=== PATIENT | male | born 1945 | race Caucasian/White ===

== ENCOUNTER 2020-05-24 17:55 | Inpatient (IN) | payer OTHER, SELFPAY ==
[~2020-05-24] VITALS: Ht 188 cm; Wt 99.4 kg
[2020-05-24 00:01] VITALS: BP_SYST 108
[~2020-05-24 17:55] MED LIST: ALBMDI INH; ALPR0.25 PO; COR12.5 PO; FLUT1BLS3 INH; FURO-149 PO; LEVO100T9 PO; LEVO500T89 PO; PRO20 PO; PRO40 PO; RIVA20TA PO; ROPI0.252 PO; SPIR25TA PO; SPIRIVA INH
[2020-05-24 18:00] VITALS: BP_SYST 155
--- NOTE | 2020-05-24 18:00 | NUR ---
Patient to ER bed 7 to gown for evaluation. Side rails up. Report given to BOBBI.
--- NOTE | 2020-05-24 18:05 | NUR ---
PT AAO AND BIB AMBULANCE FOR WORSENING COUGH X 2 DAYS. PT REPORTS THAT COUGH CAUSES HIM TO HAVE SUBSTERNAL CHEST DISCOMFORT 10/10. PT REPORTS CALLING FOR HELP D/T A NEAR SYCOPAL EPISODE. PT HAVE SIGNIFICANT CARDIAC HISTORY AND MEDICS GAVE PT ONE SPRAY OF NITRO AND ASA 325MG PO D/T A FIB. PT ARRIVED WITH AN 18G IV IN PLACE IN LEFT AC.
--- NOTE | 2020-05-24 18:15 | NUR ---
ER at bedside examining patient.
[2020-05-24] MEDS ORDERED: TADA20TA47 PO (18:33)
[2020-05-24] MEDS ORDERED: ASPI-1457 PO (18:33)
[2020-05-24] MEDS ORDERED: NITSL SL (18:33)
[2020-05-24] MEDS ORDERED: LIP40 PO (18:33)
[2020-05-24] MEDS ORDERED: MUPI1OIN5 TP (18:33)
[2020-05-24] MEDS ORDERED: POLY17PO4 PO (18:33)
--- NOTE | 2020-05-24 18:33 | NUR ---
Medication reconciliation completed with information provided by FROM PATIENT. Any prior medication reconciliation on file was reviewed and corrected.
[2020-05-24 18:47] LABS: BASOPHILS # (AUTO) 0.1 K/uL (0.0-0.2); BASOPHILS % (AUTO) 1.8 % (0.0-2.0); EOSINOPHILS # (AUTO) 0.1 K/uL (0.0-0.4); EOSINOPHILS % (AUTO) 0.7 % (0.0-4.0); HEMATOCRIT 29.7 % (36-54); HEMOGLOBIN 8.4 g/dL (14.0-18.0); LYMPHOCYTES % (AUTO) 13.6 % (20.5-51.5); MEAN CORPUSCULAR HEMOGLOBIN 17 pg (27-31); MEAN CORPUSCULAR HGB CONC 28 % (32-36); MEAN CORPUSCULAR VOLUME 62 fL (79.0-98.0); MONOCYTES # (AUTO) 1.2 K/uL (0.0-1.0); NEUTROPHILS % (AUTO) 67.9 % (40.0-70.0); PLATELET COUNT (AUTO) 187 K/uL (130-430); RED BLOOD CELL COUNT(AUTO) 4.81 MIL/uL (4.2-6.2); RED CELL DISTRIBUTION WIDTH 23.6 % (9.0-15.0); WHITE BLOOD COUNT (AUTO) 7.3 K/uL (4.8-10.8)
--- NOTE | 2020-05-24 19:04 | NUR ---
Notified by Lab that patient is Covid Antigen positive. Notified MD and RN.
--- NOTE | 2020-05-24 19:05 | NUR ---
ASSUMED CARE OF PT, PT TO BE ADMITTED AND HAS NO S/S OF DISTRESS.
[2020-05-24 19:18] LABS: ANION GAP 7 (5-15); CALCIUM 8.8 mg/dL (8.4-11.0); CHLORIDE 104 mmol/L (98-107); CREATININE 1.29 mg/dL (0.55-1.30); GLUCOSE 98 mg/dL (70-99); POTASSIUM 4.5 mmol/L (3.5-5.1); SODIUM SERUM 135 mmol/L (136-145); UREA NITROGEN, BLOOD 15 mg/dL (8-21)
[2020-05-24 19:29] LABS: ALANINE AMINOTRANSFERASE 16 U/L (12-78); ALBUMIN 3.2 g/dL (3.4-4.8); ASPARTATE AMINOTRANSFERASE 25 U/L (10-37); LIPASE 277 U/L (73-393); TOTAL BILIRUBIN 0.6 mg/dL (0.0-1.0)
--- NOTE | 2020-05-24 19:50 | NUR ---
DR. CUELLAR SPOKE WITH PATIENT REGARDING POLST, PT AGREED AND SIGNED DNR FORM WITH PHYSICIAN AND NURSE WITNESSED.
[2020-05-24] MEDS ORDERED: DEXAMETHASONE SOD PHOSPHATE 4 MG/ML VIAL IVP ONE (20:00)
--- NOTE | 2020-05-24 20:42 | NUR ---
Patient will be admitted to care of [facility]. Admitted to TELE unit. Will go to room 124B. Belongings list completed. Complete and up to date summary report printed. SBAR report to be given at bedside with opportunity for questions.
--- NOTE | 2020-05-24 20:43 | NUR ---
Transfer to TELE via ACLS protocol. Licensed nurse present. IV present no signs or symptoms of infiltration.
--- NOTE | 2020-05-24 20:54 | NUR ---
ADMISSION NOTE Received patient from ER via gurney. Patient admitted with diagnosis of SYNCOPE. Patient is awake, alert, oriented X 4. Patient oriented to hospital room, call light, toileting, pain management and safety-teach back done. Patient informed that ASUNCION will be nurse and that their room number is 124B. Personal belongings checked and Belongings List documented. Call light within reach.
[2020-05-24 21:49] VITALS: BP_SYST 137
--- NOTE | 2020-05-24 22:53 | NUR ---
CONSULTATION PAGED/CALLED Reason for Consultation: COVID / PNA Person Who was Notified: ELIAN Consulting Physician: DOCTOR JOSE CARY IS LEDGER CLERK Dental Technologist Specialty: ID Ordering Physician: Rocky FRANKLIN
[2020-05-25] VITALS (7 sets, daily range): BP systolic 108–129
[2020-05-25] MEDS ORDERED: ALBUTEROL MDI INHALATION 8 GM INH INH PRN
[2020-05-25] MEDS ORDERED: NITROGLYCERIN 0.4 MG TAB.SUBL SL PRN
[2020-05-25] MEDS ORDERED: ONDANSETRON HCL 4 MG/2 ML VIAL IVP PRN (00:15)
[2020-05-25] MEDS ORDERED: NALOXONE HCL 0.4 MG/ML AMP (NARCAN) IVP PRN ×2 (00:15)
[2020-05-25] MEDS ORDERED: HYDROcodone/ACETAMIN 5-325 MG TAB (NORCO/ VICODIN) PO PRN (00:15)
[2020-05-25] MEDS ORDERED: ACETAMINOPHEN 325 MG TABLET PO PRN (00:15)
[2020-05-25] MEDS ORDERED: HYDROcodone/ACETAMIN 10-325 MG TAB PO PRN (00:15)
--- NOTE | 2020-05-25 00:55 | NUR ---
CONSULTATION PAGED/CALLED Reason for Consultation: MOUNIKA Person Who was Notified: MICHAEL HEARINGS REPORTER 22 Consulting Physician: CHEST PAIN Soil Tester Specialty: CARDIO Ordering Physician: Rocky FRANKLIN
[2020-05-25] MEDS: ALBUTEROL SULFATE 0.083% 2.5 MG/3 ML VIAL.NEB INH SCH ×4 (01:00→19:00)
[2020-05-25] MEDS ORDERED: AZITHROMYCIN 500 MG/VIAL (ZITHROMAX) IV ONE (01:33)
[2020-05-25] MEDS ORDERED: cefTRIAXone 1 GM IVPB PREMIX 50 ML IV ONE (01:33)
[2020-05-25] MEDS: cefTRIAXone 1 GM IVPB PREMIX 50 ML IV SCH (02:00)
[2020-05-25] MEDS: AZITHROMYCIN 500 MG in NS 250 ML IV SCH (02:30)
[2020-05-25] MEDS: LEVOTHYROXINE SODIUM 0.1 MG TABLET PO SCH (06:58)
[2020-05-25] MEDS: BUDESONIDE 0.5 MG/2 ML AMPUL.NEB INH SCH ×2 (07:00→19:00)
--- NOTE | 2020-05-25 07:35 | NUR ---
OPENING NOTE Patient resting in the bed. No acute distress. AAO x 4. Denied of pain. Skin warm and dry to touch. SL intact to LAC, no redness, no swelling, patent. Discussed the safety issue, use call light when needs help, and plan of care, verbally understanding. On contact isolation. Safety measure maintained. Call light within reached. Bed locked in low position, side rails up, bed alarm on. Will continue to monitor.
[2020-05-25] MEDS ORDERED: FLUTICASONE/VILANTEROL 1 EACH BLST.W.DEV INH SCH (09:00)
[2020-05-25] MEDS ORDERED: PANTOPRAZOLE SODIUM 40 MG TAB PO SCH (09:00)
[2020-05-25] MEDS ORDERED: roPINIRole HCL 0.25 MG ( REQUIP )TABLET PO SCH (09:00)
[2020-05-25] MEDS: SPIRONOLACTONE 25 MG TABLET (ALDACTONE) PO SCH (09:51)
[2020-05-25] MEDS: MUPIROCIN 2% TOPICAL OINTMENT 22 GM NS SCH ×2 (09:51→20:50)
[2020-05-25] MEDS: POLYETHYLENE GLYCOL 3350, 17 GM/ POWD.PACK PO SCH (09:51)
[2020-05-25] MEDS: FUROSEMIDE 40 MG TABLET PO SCH ×2 (09:51→20:50)
[2020-05-25] MEDS: CARVEDILOL 12.5 MG TABLET (COREG) PO SCH ×2 (09:51→20:50)
[2020-05-25] MEDS: ASPIRIN 81 MG TABLET(ECOTRIN) PO SCH (09:51)
[2020-05-25] MEDS: FLUoxetine HCL 20 MG CAPSULE (PROzac) PO SCH (09:52)
[2020-05-25] MEDS: RIVAROXABAN 10 MG TABLET PO SCH (09:52)
--- NOTE | 2020-05-25 09:53 | NUR ---
AM SCHEDULE MED GIVEN, PATIENT TOLERATED WELL.
[2020-05-25] MEDS: CHOLECALCIFEROL (VITAMIN D3) 2,000 UNIT TABLET PO SCH (10:15)
[2020-05-25] MEDS: ASCORBIC ACID 500 MG TABLET PO SCH (10:15)
--- NOTE | 2020-05-25 11:05 | NUR ---
SEEN AND EXAMINED BY OBDULIA BRIZUELA.
[2020-05-25] MEDS ORDERED: FAMOTIDINE PF 20 MG/2 ML VIAL IVP ONE ×2 (11:44→11:45)
--- NOTE | 2020-05-25 12:13 | NUR ---
SEEN AND EXAMINED BY BETH BURKS WITH ORDER RECEIVED.
[2020-05-25] MEDS ORDERED: SACUBITRIL/VALSARTAN 24 MG-26 MG 1 TABLET PO ONE (12:15)
--- NOTE | 2020-05-25 14:32 | NUR ---
ROUND Patient resting in the bed. No acute distress. Safety measure maintained. Call light within reached. Bed locked in low position, side rails up, bed alarm on. Isolation maintained. Continue to monitor.
[2020-05-25 15:46] LABS: C-REACTIVE PROTEIN QUANT 3.2 mg/dL (0-0.5)
--- NOTE | 2020-05-25 17:55 | NUR ---
SEEN AND EXAMINED BY MEAGHAN LIRA.
--- NOTE | 2020-05-25 18:52 | NUR ---
CLOSING NOTE Patient resting in the bed. No acute distress. AAO x 4. Denied of pain. Skin warm and dry to touch. SL intact to LAC, no redness, no swelling, patent. Isolation maintained. All needs met. Safety measure maintained. Call light within reached. Bed locked in low position, side rails up, bed alarm on. Will endorse to night nurse.
[2020-05-25] MEDS: FAMOTIDINE PF 20 MG/2 ML VIAL IVP SCH (20:50)
[2020-05-25] MEDS: SACUBITRIL/VALSARTAN 24 MG-26 MG 1 TABLET PO SCH (20:50)
[2020-05-25] MEDS: ATORVASTATIN 20 MG TABLET PO SCH (20:50)
--- NOTE | 2020-05-25 20:50 | NUR ---
PROVIDED PATIENT WITH HANDOUT REGARDING CONVALESCENT PLASMA, REINFORCED EDUCATION, PATIENT SAID HE WILL READ IT FIRST AND CALL WHEN HE IS READY TO MAKE A DECISION.
--- NOTE | 2020-05-26 00:29 | NUR ---
PATIENT REFUSED CONVALESCENT PLASMA, REINFORCED TEACHING, PATIENT STILL REFUSED "BECAUSE OF POSSIBLE SIDE EFFECTS." CALLED ANOTHER RN TO WITNESS PATIENT'S REFUSAL.
[2020-05-26 00:30] VITALS: BP_SYST 108
[2020-05-26] MEDS: cefTRIAXone 1 GM IVPB PREMIX 50 ML IV SCH (00:30)
--- NOTE | 2020-05-26 00:30 | NUR ---
2ND NURSE VERIFY PATIENT REFUSED CONVALESCENT PLASMA.
[2020-05-26] MEDS: ALBUTEROL SULFATE 0.083% 2.5 MG/3 ML VIAL.NEB INH SCH ×2 (01:00→19:00)
[2020-05-26] MEDS: AZITHROMYCIN 500 MG in NS 250 ML IV SCH (01:10)
[2020-05-26] MEDS: LEVOTHYROXINE SODIUM 0.1 MG TABLET PO SCH (05:14)
--- NOTE | 2020-05-26 07:15 | NUR ---
OPENING NOTE RECEIVED SBAR FROM NIGHT RN, PATIENT IN BED, RESPIRATIONS EVEN, NON LABORED, BED IN LOW AND LOCKED POSITION, CALL LIGHT WITHIN REACH,
[2020-05-26 07:20] LABS: HEMOGLOBIN 8.9 g/dL (14.0-18.0); MEAN CORPUSCULAR HEMOGLOBIN 17 pg (27-31); MEAN CORPUSCULAR HGB CONC 28 % (32-36); MEAN CORPUSCULAR VOLUME 62 fL (79.0-98.0); PLATELET COUNT (AUTO) 231 K/uL (130-430); RED BLOOD CELL COUNT(AUTO) 5.16 MIL/uL (4.2-6.2); RED CELL DISTRIBUTION WIDTH 23.9 % (9.0-15.0); WHITE BLOOD COUNT (AUTO) 13.3 K/uL (4.8-10.8)
[2020-05-26 07:32] LABS: PHOSPHORUS 3.8 mg/dL (2.7-4.5); UREA NITROGEN, BLOOD 28 mg/dL (8-21)
[2020-05-26 08:00] VITALS: BP_SYST 120
--- NOTE | 2020-05-26 08:00 | NUR ---
NURSE NOTE PATIENT IN BED, RESPIRATIONS EVEN, NON LABORED, BED IN LOW AND LOCKED POSITION, CALL LIGHT WITHIN REACH, OBTAINED VS, PROVIDED MORNING MEDICATIONS, DENIES ANY PAIN OR DISCOMFORT
[2020-05-26 08:22] LABS: ALANINE AMINOTRANSFERASE 22 U/L (12-78); ALBUMIN 3.1 g/dL (3.4-4.8); ANION GAP 10 (5-15); ASPARTATE AMINOTRANSFERASE 25 U/L (10-37); C-REACTIVE PROTEIN QUANT 1.1 mg/dL (0-0.5); CALCIUM 9.7 mg/dL (8.4-11.0); CHLORIDE 101 mmol/L (98-107); GLUCOSE 102 mg/dL (70-99); POTASSIUM 5.1 mmol/L (3.5-5.1); SODIUM SERUM 133 mmol/L (136-145); TOTAL BILIRUBIN 0.4 mg/dL (0.0-1.0)
[2020-05-26 09:15] LABS: BAND % (MANUAL) 9 % (0-6); BASOPHILS % (MANUAL) 0 % (0-2); EOSINOPHILS % (MANUAL) 0 % (0-7); LYMPHOCYTES % (MANUAL) 6 % (20-46); MONOCYTES % (MANUAL) 6 % (0-11)
[2020-05-26] MEDS: MUPIROCIN 2% TOPICAL OINTMENT 22 GM NS SCH ×2 (09:50→21:55)
[2020-05-26] MEDS: SPIRONOLACTONE 25 MG TABLET (ALDACTONE) PO SCH (09:50)
[2020-05-26] MEDS: FAMOTIDINE PF 20 MG/2 ML VIAL IVP SCH ×2 (09:50→21:54)
[2020-05-26] MEDS: FUROSEMIDE 40 MG TABLET PO SCH ×2 (09:51→21:56)
[2020-05-26] MEDS: CARVEDILOL 12.5 MG TABLET (COREG) PO SCH ×2 (09:51→21:55)
[2020-05-26] MEDS: SACUBITRIL/VALSARTAN 24 MG-26 MG 1 TABLET PO SCH ×2 (09:51→21:55)
[2020-05-26] MEDS: ASPIRIN 81 MG TABLET(ECOTRIN) PO SCH (09:51)
[2020-05-26] MEDS: CHOLECALCIFEROL (VITAMIN D3) 2,000 UNIT TABLET PO SCH (09:52)
[2020-05-26] MEDS: ASCORBIC ACID 500 MG TABLET PO SCH (09:52)
[2020-05-26] MEDS: POLYETHYLENE GLYCOL 3350, 17 GM/ POWD.PACK PO SCH (09:52)
[2020-05-26] MEDS: FLUoxetine HCL 20 MG CAPSULE (PROzac) PO SCH (09:52)
[2020-05-26] MEDS: RIVAROXABAN 10 MG TABLET PO SCH (09:52)
--- NOTE | 2020-05-26 10:15 | NUR ---
NURSE NOTE PATIENT IN BED, WATCHING TV, BED IN LOW AND LOCKED POSITION, CALL LIGHT WITHIN REACH, DENIES ANY PAIN OR DISCOMFORT
--- NOTE | 2020-05-26 11:36 | NUR ---
ROUNDS DR DENTON BEDSIDE EXAMINING PATIENT
--- NOTE | 2020-05-26 11:37 | NUR ---
MD CALL DR ROJO CALLED REGARDING PATIENT, INFORMED OF STATUS, PER DR ROJO HAVE PATIENT PRONE WHEN SLEEPING
[2020-05-26 12:00] VITALS: BP_SYST 128
--- NOTE | 2020-05-26 12:00 | NUR ---
nurse note provided patient with lunch, obtained vs, patient sitting on edge of bed, respirations even, non labored, denies any pain or discomfort. bed in low and locked position, call light within reach
--- NOTE | 2020-05-26 14:05 | NUR ---
nurse note patient in bed, respirations even, non labored, bed in low and locked position, call light within reach. denies any pain or discomfort. Patient on room air
--- NOTE | 2020-05-26 15:23 | NUR ---
nurse note patient in bed, eyes closed, respirations even, non labored, bed in low and locked position, call light within reach. no signs of distress noted
[2020-05-26 16:00] VITALS: BP_SYST 126
--- NOTE | 2020-05-26 17:37 | NUR ---
nurse note patient in bed, on the phone, no signs of distress noted, provided dinner. bed in low and locked position, call light within reach,
[2020-05-26] MEDS: BUDESONIDE 0.5 MG/2 ML AMPUL.NEB INH SCH (19:00)
--- NOTE | 2020-05-26 19:02 | NUR ---
CLOSING NOTE PROVIDED SBAR TO NIGHT RN, PATIENT IN BED, RESPIRATIONS EVEN, NON LABORED, BED IN LOW AND LOCKED POSITION, CALL LIGHT WITHIN REACH, ENDORSED CARE TO NIGHT RN
--- NOTE | 2020-05-26 19:10 | NUR ---
OPENING NOTE: RECEIVED REPORT FROM DAY SHIFT RN AND ASSUMED CARE. PATIENT IS IN THE BED. RESPIRATION IS EVEN AND UNLABORED ON RA. PATIENT DENIES PAIN AND /OR SOB. IV IS ON LEFT AC AND FLUSHES WELL. NO SIGN OF INFILTRATION NOTED. EDUCATED PATIENT TO USE CALL LIGHT FOR ASSISTANCE. SAFETY, FALL, DROPLET AND CONTACT PRECAUTIONS ARE IN PLACE. CALL LIGHT IS WITH PATIENT. WILL CONTINUE TO MONITOR.
[2020-05-26 20:00] VITALS: BP_SYST 121
--- NOTE | 2020-05-26 21:30 | NUR ---
MED PASS: PATIENT GIVEN SCHEDULED MEDS. MEDICATIONS ACTIONS AND SIDE EFFECTS EXPLAINED TO PATIENT. PATIENT VERBALIZED UNDERSTANDING. NO S/S RESPIRATORY DISTRESS NOTED. WILL MONITOR PATIENT FOR ANY CHANGES.
[2020-05-26] MEDS: ATORVASTATIN 20 MG TABLET PO SCH (21:56)
[2020-05-27] VITALS: BP_SYST 133
[2020-05-27] MEDS: cefTRIAXone 1 GM IVPB PREMIX 50 ML IV SCH (00:15)
[2020-05-27] MEDS: AZITHROMYCIN 500 MG in NS 250 ML IV SCH (00:15)
--- NOTE | 2020-05-27 00:15 | NUR ---
RN ROUNDS: PATIENT IS AWAKE AND STABLE. BREATHING IS EVEN AND UNLABORED ON RA. STARTED IV MEDS. WILL CONTINUE TO MONITOR.
[2020-05-27] MEDS: ALBUTEROL SULFATE 0.083% 2.5 MG/3 ML VIAL.NEB INH SCH (01:00)
--- NOTE | 2020-05-27 02:50 | NUR ---
PAIN MED: PATIENT REPORTS HEADACHE, 8 ON THE SCALE 0-10. PAIN MED GIVEN TO PATIENT. WILL RE-ASSESS PAIN LEVEL. SAFETY,FALL, AND ISOLATION PRECAUTIONS ARE IN PLACE.
--- NOTE | 2020-05-27 04:10 | NUR ---
RN ROUNDS: PATIENT DISCONNECTED HIMSELF FROM HEART MONITOR. HE TOOK HIS HOSPITAL GOWN OFF, STATING HE FEELS COLD. PUT HIS GOWN BACK, RECONNECT HIM TO HEART MONITOR. PROVIDED PATIENT WITH WARM BLANKET. NOMI SIGNS OBTAINED AND VALUES ARE WITHIN NORMAL LIMITS. PATIENT LOOKS COMFORTABLE. WILL MONITOR PATIENT FOR ANY CHANGES.
[2020-05-27] MEDS: LEVOTHYROXINE SODIUM 0.1 MG TABLET PO SCH (05:30)
--- NOTE | 2020-05-27 05:30 | NUR ---
CLOSING NOTE/MORNING MED: PATIENT IS IN BED, AWAKE. MORNING MED GIVEN TO PATIENT. NO S/S RESPIRATORY DISTRESS NOTED. BREATHING UNLABORED AND EVEN ON RA.PATIENT NEEDS TO USE BATHROOM. PATIENT ASSISTED TO BATHROOM AND SAFELY WALKED BACK TO BED. NO SOB OR DIZZINESS. REPORTS BEING ANXIOUS. VITAL SIGNS OBTAINED AND VALUES ARE WITHIN NORMAL LIMIT. XANAX GIVEN TO PATIENT. SAFETY,FALL, AND ISOLATION PRECAUTIONS MAINTAINED. CALL LIGHT IS WITH PATIENT. ALL NEEDS MET. WILL ENDORSE PATIENT CARE TO DAY SHIFT RN.
[2020-05-27] MEDS: ALPRAZolam 0.25 MG TABLET PO PRN (05:45)
[2020-05-27] MEDS: BUDESONIDE 0.5 MG/2 ML AMPUL.NEB INH SCH (07:00)
[2020-05-27] MEDS ORDERED: ALBUTEROL MDI INHALATION 8 GM INH INH SCH ×2 (07:00→09:00)
--- NOTE | 2020-05-27 07:26 | NUR ---
Opening Note received SBAR report from guitar maker RN, patient resting in bed, respirations even and unlabored on room air, no acute distress noted, educated patient on use of call light and asked to call for assistance, patient verbalized understanding, call light in reach, bed in low and locked position, bed alarm on.
--- NOTE | 2020-05-27 08:14 | NUR ---
CALLED VERO AQUINO (TRUE) TO NOTIFY OF ORDERS FOR RESTRAINTS, NO ANSWER, VOICE MAILBOX FULL. WILL CALL AGAIN. Addendum: 05/28/20 at 08 by Janene Potter RN CORRECT TIME OF NOTE 2014
--- NOTE | 2020-05-27 08:15 | NUR ---
SECOND CALL TO VERO AQUINO (SON), TO NOTIFY OF ORDER FOR BILATERAL WRIST RESTRAINTS. NO ANSWER, VOICE MAILBOX FULL. WILL TRY AGAIN LATER. Addendum: 05/28/20 at 0570 by Janene Potter RN CORRECT TIME OF NOTE 2016
--- NOTE | 2020-05-27 08:25 | NUR ---
Bathroom patient ambulated to bathroom, steady gait noted, patient refuses needing assistance with toileting and uses the bathroom independently, patient ambulated back to bed, patient sitting up in bed eating breakfast, patient tolerating well.
[2020-05-27] MEDS: FLUoxetine HCL 20 MG CAPSULE (PROzac) PO SCH (08:49)
[2020-05-27] MEDS: MUPIROCIN 2% TOPICAL OINTMENT 22 GM NS SCH ×2 (08:49→21:29)
[2020-05-27] MEDS: POLYETHYLENE GLYCOL 3350, 17 GM/ POWD.PACK PO SCH (08:49)
[2020-05-27] MEDS: ASCORBIC ACID 500 MG TABLET PO SCH (08:50)
[2020-05-27] MEDS: CHOLECALCIFEROL (VITAMIN D3) 2,000 UNIT TABLET PO SCH (08:51)
[2020-05-27] MEDS: ASPIRIN 81 MG TABLET(ECOTRIN) PO SCH (08:51)
--- NOTE | 2020-05-27 08:51 | NUR ---
Nutrition Update Nadir scale 18 noted. Pt admitted for COVID, PNA Diet: Cardiac Diet BMI: 31.4 kg/m2 RD to follow per nutrition care standards.
[2020-05-27] MEDS: SACUBITRIL/VALSARTAN 24 MG-26 MG 1 TABLET PO SCH ×2 (08:52→21:29)
[2020-05-27] MEDS: SPIRONOLACTONE 25 MG TABLET (ALDACTONE) PO SCH (09:31)
[2020-05-27] MEDS: FAMOTIDINE PF 20 MG/2 ML VIAL IVP SCH ×2 (09:31→21:29)
[2020-05-27] MEDS: FUROSEMIDE 40 MG TABLET PO SCH ×2 (09:32→21:00)
[2020-05-27] MEDS: RIVAROXABAN 10 MG TABLET PO SCH (09:32)
[2020-05-27] MEDS: CARVEDILOL 12.5 MG TABLET (COREG) PO SCH ×2 (09:32→21:00)
--- NOTE | 2020-05-27 09:33 | NUR ---
Fall Prevention educated patient on fall prevention and safety precautions, educated patient on use and side effects of medications administered including increased risk for falls, patient verbalized understanding, encouraged patient to call for assistance before ambulating, patient verbalized understanding, call light in reach, patient resting in bed, bed in low and locked position. Addendum: 05/27/20 at 0935 by Marika Bai RN educated patient on use of bed alarm for patient safety, patient verbalized understanding, patient refusing bed alarm.
[2020-05-27 09:35] VITALS: BP_SYST 109
--- NOTE | 2020-05-27 10:50 | NUR ---
Physician Rounds rounds with Dr. Fishman, informed him that patient is room air 93%, informed him that patient is able to ambulate to the bathroom, no new orders received. Addendum: 05/27/20 at 1452 by Marika Bai RN informed Dr. Fishman that per retail shift manager RN patient had an episode of confusion/agitation last night, patient is currently A&Ox4 to name, time, event and place, however patient is occasionally forgetful or makes inappropriate statements such as "this is where my closet goes" and points to the corner of the room, no new orders.
--- NOTE | 2020-05-27 11:01 | NUR ---
Physician Rounds Dr. Chiang at bedside examining patient.
[2020-05-27 12:27] VITALS: BP_SYST 105
--- NOTE | 2020-05-27 14:05 | NUR ---
Spoke with physician spoke with Dr. Chiang, per Dr. Chiang patient is cleared for discharge home.
--- NOTE | 2020-05-27 14:48 | NUR ---
Spoke with physician spoke with Dr. Fishman, informed him that patient has been cleared for discharge by Dr. Chiang, informed him that patient is A&Ox4 to name, place, event, and time, informed him that patient has occasional episodes of confusion, when the RN asked patient where he lives he stated "I live alone", when the RN asked who brought him to the hospital patient stated "I will have to check on that but I think my dog brought me", per patients roseline Peñaloza patient is not normally confused or forgetful, per Dr. Fishman hold discharge for today, informed patients roseline Peñaloza that patient will not be discharged today.
--- NOTE | 2020-05-27 15:41 | NUR ---
RN rounds patient resting in bed, calm, respirations even and unlabored on room air, no acute distress noted.
[2020-05-27 16:33] VITALS: BP_SYST 122
--- NOTE | 2020-05-27 17:24 | NUR ---
MD IKER PRADO CALLED AT SPOKE WITH DR.KANGARLU CAPONE SOPHIA REVENUE MANAGER.
[2020-05-27 17:25] VITALS: BP_SYST 140
[2020-05-27] MEDS ORDERED: DEXTROSE 50% JECT 50 ML DISP.SYRIN IVP ONE (17:25)
--- NOTE | 2020-05-27 17:25 | NUR ---
Rapid Response patient has ALOC, patient is awake and able to respond to some questions, however patient appears much more lethargic than before, patient does not know where he is, rapid response called, rapid response team at bedside, spoke with Dr. Childress, informed her of ALOC and patients current BP 140/60, HR 99, O2Sat 99% on room air, blood glucose 63, new orders received to correct blood glucose, per Dr. Childress blood sugar should be monitored Q1hr for 4 hours, per Dr. Childress patient does not need to be transferred to ICU at this time, blood sugar reassessed 15 minutes after D50 administration, blood glucose 80, patient is awake and able to take PO intake, provided patient with orange juice with 5 packets of regular sugar, patient resting in bed.
[2020-05-27] MEDS ORDERED: DEXTROSE 50% JECT 50 ML DISP.SYRIN ONE (17:34)
--- NOTE | 2020-05-27 18:00 | NUR ---
Out of bed patient attempting to ambulate, patient is unsteady, patient states that he needs to use the bathroom, assisted patient to use the urinal at bedside, patient voided, assisted patient back to bed, bed alarm on, call light in reach.
--- NOTE | 2020-05-27 18:30 | NUR ---
Out of bed patient attempted to ambulate without assistance, patient is unsteady and lethargic, patient states that he needs to go home, reoriented patient, assisted patient back to bed, informed wire charger, patient moved to room 120B close to nurses station, oriented patient to room, educated patient on use of call light and asked to call for assistance, patient verbalized understanding, call light in reach, bed in low and locked position, bed alarm on.
--- NOTE | 2020-05-27 19:15 | NUR ---
OPENING NOTE PATIENT OUT BED, UNSTEADY AND VOIDING ON FLOOR. PATIENT AOX1. STATES HIS NAME HOWEVER CONFUSED OTHERWISE. PATIENT BECOMES ANXIOUS AND COMBATIVE, KICKING AND HITTING. GUIDED PATIENT BACK TO BED, ATTEMPTING TO GET OUT OF BED, UNCOOPERATIVE. IV SITE SALINE LOCKED. NO SIGNS OF SOB NOTED. PULSE OXYGEN 99% ON ROOM AIR. PAGED DR HILLMAN FOR ORDERS. BED LOCKED IN LOW POSITION, BED ALARM ON. CALL LIGHT IN REACH. WILL CONTINUE TO MONITOR.
--- NOTE | 2020-05-27 19:32 | NUR ---
Closing Note SBAR report given to receiving RN, patient resting in bed, respirations even and unlabored on room air, no acute distress noted, room close to nurses station, educated patient on use of call light and asked to call for assistance, patient verbalized understanding, call light in reach, bed in low and locked position, bed alarm on, care endorsed to diesel tractor engine mechanic RN. Addendum: 05/27/20 at 1955 by Marika Bai RN at time that SBAR report was given patient attempted to ambulate again without asking for assistance, patient urinate on the floor, both RNs assisted patient back to bed, patient resting in bed, bed in low and locked position, bed alarm on, call light in reach, Dr. Childress was paged regarding patient unsteady and attempting to ambulate multiple times, care endorsed to Janene BOND.
[2020-05-27 20:00] VITALS: BP_SYST 136
--- NOTE | 2020-05-27 20:50 | NUR ---
SPOKE WITH DR KADY PATTERSON PATIENT COMBATIVE AND GETTING OUT OF BED. ORDERS RECEIVED FOR BILATERAL SOFT WRIST RESTRAINTS FOR 12HRS. RESTRAINTS APPLIED, NO SIGNS OF INJURY NOTED. PATIENT KICKING AND CONTINUES TRYING TO GET OUT OF BED. ATIVAN 1MG IVP ADMINISTERED. PATIENT TOLERATED. WILL CONTINUE TO MONITOR.
--- NOTE | 2020-05-27 21:25 | NUR ---
LEFT MESSAGE FOR VERO CALHOUN (SON). NO ANSWER.
[2020-05-27] MEDS: ATORVASTATIN 20 MG TABLET PO SCH (21:29)
--- NOTE | 2020-05-27 21:45 | NUR ---
BLOOD SUGAR ACCUCHECK Q1 HOUR FOR 4 HOURS COMPLETE. BLOOD SUGAR TRENDING DOWN AND NOW IS 85. NOTIFIED DR HILLMAN, RECEIVED ORDERS TO START FLUIDS, D5 NS AT 100ML/HR. WILL CONTINUE TO MONITOR.
[2020-05-27] MEDS ORDERED: D5NS 1,000 ML IV SCH (23:15)
[2020-05-28] VITALS: BP_SYST 134
[2020-05-28] MEDS: cefTRIAXone 1 GM IVPB PREMIX 50 ML IV SCH (00:51)
[2020-05-28] MEDS: AZITHROMYCIN 500 MG in NS 250 ML IV SCH (00:51)
[2020-05-28] MEDS: LORazepam 2 MG/ML VIAL IVP PRN ×3 (01:40→12:29)
--- NOTE | 2020-05-28 01:40 | NUR ---
RESTLESS/AGITATED PATIENT TRYING TO GET OUT OF BED, KICKING AND TRYING TO REMOVE BILATERAL SOFT WRIST RESTRAINTS. ATIVAN 1MG IVP ADMINISTERED. PATIENT TOLERATED. WILL CONTINUE TO MONITOR.
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
--- NOTE | 2020-05-28 04:15 | NUR ---
DO NOT GIVE INFORMATION TO JACINDA (OIL WELL DIRECTIONAL SURVEYOR) PER TRUE AQUINO
--- NOTE | 2020-05-28 06:45 | NUR ---
CLOSING NOTE PROVIDED INCONTINENCE CARE. PATIENT RESTLESS, KICKING AND TRYING TO GET OUT OF BED. PATIENT REMAINS CONFUSED. AOX1 TO NAME ONLY. PATIENT TOLERATED ALL MEDICATIONS ADMINISTERED. BLOOD SUGAR 85, NO INSULIN COVERAGE NEEDED. WILL CONTINUE TO MONITOR. SAFETY, FALL AND ISOLATION PRECAUTIONS IN PLACE, PATIENT STABLE, CALL LIGHT IN REACH. WILL CONTINUE TO MONITOR.
[2020-05-28] MEDS: LEVOTHYROXINE SODIUM 0.1 MG TABLET PO SCH (06:58)
--- NOTE | 2020-05-28 07:29 | NUR ---
ATTENDING MD DR DENTON WAS CALLED, RE: LOW BS AND TO RENEW ORDER FOR RESTRAINTS. SPOKE TO TED.
[2020-05-28] MEDS ORDERED: D10W 1,000 ML IV SCH (07:45)
[2020-05-28 08:00] VITALS: BP_SYST 130
--- NOTE | 2020-05-28 08:00 | NUR ---
Note Dr Fishman called back and order for renewal of restraints and IVF's D5W at 50cc/hr received. Pt has bilateral wrist restraints - pt very restless and swinging arms when restraints loosened. Tele unit attached and intact at this time. IV in LAC intact and patent infusing IVF's. No SOB/resp distress or pain/discomfort noted at this time. Pt very restless and confused - refuses to eat or drink. Pt did take all his PO medications. No needs noted at this time. Pt next to nurses' station for close observation for needs and care.
[2020-05-28] MEDS: MUPIROCIN 2% TOPICAL OINTMENT 22 GM NS SCH ×2 (08:06→22:28)
[2020-05-28] MEDS: FAMOTIDINE PF 20 MG/2 ML VIAL IVP SCH ×2 (08:06→22:28)
[2020-05-28] MEDS: SPIRONOLACTONE 25 MG TABLET (ALDACTONE) PO SCH (08:08)
[2020-05-28] MEDS: POLYETHYLENE GLYCOL 3350, 17 GM/ POWD.PACK PO SCH (08:09)
[2020-05-28] MEDS: CARVEDILOL 12.5 MG TABLET (COREG) PO SCH ×2 (08:09→22:29)
[2020-05-28] MEDS: FUROSEMIDE 40 MG TABLET PO SCH ×2 (08:09→22:30)
[2020-05-28] MEDS: ASPIRIN 81 MG TABLET(ECOTRIN) PO SCH (08:09)
[2020-05-28] MEDS: ASCORBIC ACID 500 MG TABLET PO SCH (08:10)
[2020-05-28] MEDS: FLUoxetine HCL 20 MG CAPSULE (PROzac) PO SCH (08:10)
[2020-05-28] MEDS: CHOLECALCIFEROL (VITAMIN D3) 2,000 UNIT TABLET PO SCH (08:14)
[2020-05-28] MEDS: RIVAROXABAN 10 MG TABLET PO SCH (08:15)
[2020-05-28 09:35] VITALS: BP_SYST 135
[2020-05-28] MEDS: SACUBITRIL/VALSARTAN 24 MG-26 MG 1 TABLET PO SCH ×2 (09:37→22:29)
--- NOTE | 2020-05-28 10:40 | NUR ---
Note Pt was given partial bed bath for urine inconstance and linens changed at this time as well. Pt was given some water to drink. Pt tolerated partial bed bath with 2 person assist. Pt's bed in low position and bed alarm on at all times.
[2020-05-28] MEDS ORDERED: MIDAZOLAM HCL 5 MG/5 ML VIAL IVP ONE ×2 (11:30→12:00)
--- NOTE | 2020-05-28 11:46 | NUR ---
CONSULTATION PAGED/CALLED Reason for Consultation: [] AGITATION, CONFUSION Person Who was Notified: [] LEFT A VOICE MESSAGE ON HIS CELL PHONE (WILL TEXT HIM TOO) Consulting Physician: [] DR Jorge SO Pharmacology Professor Specialty: [] NEUROLOGY Ordering Physician: [] DR YATES
[2020-05-28 12:00] VITALS: BP_SYST 111
--- NOTE | 2020-05-28 13:55 | NUR ---
Note Dr Chiang (pul) on the floor and at pt's bedside assessing pt at this time.
--- NOTE | 2020-05-28 14:00 | NUR ---
Note Pt in and out of sleep all shift. Pt still has bilateral wrist restraints. IVF's infusing well through LAC IV site.
--- NOTE | 2020-05-28 14:45 | NUR ---
Note Dr Leblanc (neuro) on the floor to assess pt at this time. Addendum: 05/28/20 at 1701 by Janice Ac RN Dr Geeta Brannonneuro) - not Dr Leblanc
[2020-05-28 16:00] VITALS: BP_SYST 120
--- NOTE | 2020-05-28 17:10 | NUR ---
Note Pt resting in bed with bilateral wrist restraints on. IVF's infusing well through LAC. No needs noted at this time. Pt checked on q1' and PRN all shift. Call light within reach.
[2020-05-28] MEDS ORDERED: D5W 1,000 ML IV SCH (18:15)
--- NOTE | 2020-05-28 18:25 | NUR ---
Note Pt resting in bed with bilateral wrist restraints on all shift. LAC IV intact and patent infusing IVF's well. Pt was checked on q1' and PRN all shift for needs and care. No SOB/resp distress or pain/discomfort noted at this time. Tele unit attached and intact at this time. Pt was maintained with safety and isolation precautions all shift. No needs noted at this time. Pt refuses all food or drink at this time. Pt still restless and aggressive when restraints are removed for circulation and comfort for 5 minutes. Pt's son called for update [id number]. Dr Chiang was on the floor and assessment was done at bedside. No needs noted at this time. Call light within reach.
--- NOTE | 2020-05-28 19:15 | NUR ---
CHANGE OF SHIFT; day shift nurse endorsed pt. with bilateral soft wrist restraints, pt. agitated and restless. no resp. distress. on isolation for Covid. on fall risk precaution, bed in low position.
--- NOTE | 2020-05-28 20:30 | NUR ---
NOTES: pt. remain restless when checked, able to pull out sheets and pads, incontinent of urine, bed is wet. IV site on left ac infiltrated. both hands very cold, circulation checked, off restraints for 10 minutes. complete hs care done/vitor care done and linen changed with nurse Emily 's help. on radiographer cardiac catheterization and shows atrial fib controlled rate. both arms bruising. on room air, no resp. distress. on fall risk precautions.
[2020-05-28 21:00] VITALS: BP_SYST 124
[2020-05-28] MEDS: ATORVASTATIN 20 MG TABLET PO SCH (21:00)
--- NOTE | 2020-05-28 21:30 | NUR ---
NOTES: nurse Diaz; able to insert another IV on right forearm # 22, attempted multiple times with some difficulty, resume IVF @ 50 cc/hr with D5W. kept warm with blanket but still manage to remove.
--- NOTE | 2020-05-28 23:00 | NUR ---
NOTES: BS checked 64, orange juice with sugar given, able to drink, will recheck in 15 minutes.
--- NOTE | 2020-05-28 23:15 | NUR ---
NOTES: rechecked BS 73, will monitor for any signs of hypoglycemia. another 4 oz. orange juice given .
--- NOTE | 2020-05-29 00:15 | NUR ---
NOTES: pt. on and off gets restless, bilateral soft wrist restraints in place. condition guarded.
[2020-05-29] MEDS: AZITHROMYCIN 500 MG in NS 250 ML IV SCH (00:36)
[2020-05-29] MEDS: cefTRIAXone 1 GM IVPB PREMIX 50 ML IV SCH (01:00)
[2020-05-29 01:30] VITALS: BP_SYST 115
--- NOTE | 2020-05-29 01:30 | NUR ---
NOTES: pt. anxious and agitated, Xanax po given. pt. incontinent of urine, keeps removing pads. complete vitor care done. bilateral soft wrist restraints on and adjusted.
--- NOTE | 2020-05-29 01:45 | NUR ---
NOTES; pt. in severe agitation and restlessness, Ativan IVP given. pt. repositioned. pt able to turn from side to side. fall risk. bed alarm on. IVF continuous. for further observation.
[2020-05-29] MEDS: LORazepam 2 MG/ML VIAL IVP PRN ×2 (01:48→08:12)
[2020-05-29] MEDS: ALPRAZolam 0.25 MG TABLET PO PRN (01:50)
--- NOTE | 2020-05-29 03:30 | NUR ---
NOTES: pt. still restless but little less, still trying to get out of bed, one leg hanging out of the rail, bilateral soft wrist restraints in place. condition observed and continue to monitor, pt. wet the bed, pads out and linens on the floor.
--- NOTE | 2020-05-29 04:45 | NUR ---
NOTES: condition guarded. on fall risk precaution. continue to monitor.
[2020-05-29] MEDS: LEVOTHYROXINE SODIUM 0.1 MG TABLET PO SCH (06:00)
--- NOTE | 2020-05-29 06:00 | NUR ---
NOTES: still restless and agitated, hanging leg outside the rails, repositioned and pulled up with another nurse, bilateral soft wrist restraints. gets incontinent occasionally. bed alarm on. O2 sat 95% on room air but when he gets restless O@ sat down to 88%, O2 @ 2 liters per nasal cannula placed by charge nurse Emily.
[2020-05-29] MEDS: RIVAROXABAN 10 MG TABLET PO SCH (07:49)
[2020-05-29] MEDS: ASCORBIC ACID 500 MG TABLET PO SCH (07:50)
[2020-05-29] MEDS: CHOLECALCIFEROL (VITAMIN D3) 2,000 UNIT TABLET PO SCH (07:50)
[2020-05-29] MEDS: POLYETHYLENE GLYCOL 3350, 17 GM/ POWD.PACK PO SCH (07:51)
[2020-05-29] MEDS: ASPIRIN 81 MG TABLET(ECOTRIN) PO SCH (07:51)
[2020-05-29] MEDS: SPIRONOLACTONE 25 MG TABLET (ALDACTONE) PO SCH (07:52)
[2020-05-29] MEDS: FUROSEMIDE 40 MG TABLET PO SCH ×2 (07:52→21:25)
[2020-05-29] MEDS: FLUoxetine HCL 20 MG CAPSULE (PROzac) PO SCH (07:53)
[2020-05-29] MEDS: CARVEDILOL 12.5 MG TABLET (COREG) PO SCH ×2 (07:54→21:25)
[2020-05-29] MEDS: MUPIROCIN 2% TOPICAL OINTMENT 22 GM NS SCH ×2 (07:54→21:00)
[2020-05-29] MEDS: SACUBITRIL/VALSARTAN 24 MG-26 MG 1 TABLET PO SCH ×2 (07:55→21:25)
[2020-05-29 08:00] VITALS: BP_SYST 118
[2020-05-29] MEDS ORDERED: MIDAZOLAM HCL 5 MG/5 ML VIAL IVP ONE (08:00)
--- NOTE | 2020-05-29 08:00 | NUR ---
Note Pt agitated and restless in bed with bilateral wrist restraints on. Pt has tele unit attached and intact at this time. Tele unit attached and intact. IV in right forearm intact and patent infusing IVF's well. No SOB/resp distress or pain/discomfort noted at this time. Pt denies any needs at this time. Call light within reach.
[2020-05-29] MEDS: FAMOTIDINE PF 20 MG/2 ML VIAL IVP SCH ×2 (08:13→21:23)
[2020-05-29] MEDS ORDERED: D10W 1,000 ML IV SCH (10:45)
[2020-05-29] MEDS ORDERED: HALOPERIDOL LACTATE 5 MG/ML VIAL IVP PRN ×2 (11:00→14:15)
--- NOTE | 2020-05-29 11:00 | NUR ---
Note Dr Burks on the floor to assess pt and write orders at this time. Order for dc'd tele unit received. Tele unit removed and returned to support services tech at this time. Dr Burks notified that pt very restless, agitated and moves endlessly in bed even though pt given Ativan IVP q4'. MD will change medication from Ativan to Haldol. Order for Ammonia level and ABG's was ordered as well at this time.
[2020-05-29 11:17] LABS: EOSINOPHILS % (AUTO) 0.1 % (0.0-4.0); HEMOGLOBIN 9.1 g/dL (14.0-18.0); LYMPHOCYTES # (AUTO) 0.5 K/uL (1.0-5.5)
[2020-05-29 11:24] LABS: BASOPHILS # (AUTO) 0.1 K/uL (0.0-0.2); BASOPHILS % (AUTO) 0.8 % (0.0-2.0); HEMATOCRIT 31.6 % (36-54); LYMPHOCYTES % (AUTO) 6.9 % (20.5-51.5); MEAN CORPUSCULAR HEMOGLOBIN 17 pg (27-31); MEAN CORPUSCULAR HGB CONC 29 % (32-36); MEAN CORPUSCULAR VOLUME 60 fL (79.0-98.0); MONOCYTES # (AUTO) 0.7 K/uL (0.0-1.0); MONOCYTES % (AUTO) 9.7 % (1.7-9.3); NEUTROPHILS # (AUTO) 6.1 K/uL (1.8-7.7); NEUTROPHILS % (AUTO) 82.5 % (40.0-70.0); PLATELET COUNT (AUTO) 210 K/uL (130-430); RED BLOOD CELL COUNT(AUTO) 5.26 MIL/uL (4.2-6.2); RED CELL DISTRIBUTION WIDTH 23.9 % (9.0-15.0); WHITE BLOOD COUNT (AUTO) 7.4 K/uL (4.8-10.8)
[2020-05-29 11:32] LABS: ALANINE AMINOTRANSFERASE 31 U/L (12-78); ANION GAP 7 (5-15); ASPARTATE AMINOTRANSFERASE 53 U/L (10-37); CALCIUM 8.4 mg/dL (8.4-11.0); CHLORIDE 99 mmol/L (98-107); CREATININE 1.17 mg/dL (0.55-1.30); GLUCOSE 102 mg/dL (70-99); POTASSIUM 4.2 mmol/L (3.5-5.1); SODIUM SERUM 131 mmol/L (136-145); TOTAL BILIRUBIN 0.8 mg/dL (0.0-1.0); UREA NITROGEN, BLOOD 30 mg/dL (8-21)
[2020-05-29 12:00] VITALS: BP_SYST 111
[2020-05-29 12:10] VITALS: BP_SYST 120
--- NOTE | 2020-05-29 13:47 | NUR ---
Dietitian Recommendations * Recommend cardiac, CCHO diet w/ Glucerna BID (ONS provides 440 kcal/day, 20 gm protein/day) FAITH AYOUB Please refer to Nutrition Assessment for details. Addendum: 05/29/20 at [address] Amended: Links added.
--- NOTE | 2020-05-29 14:00 | NUR ---
Note Pt still restless in bed and moving around in bed - after Haldol IVP was given at 1145am. Pt very agitated and unable to stay still and rest. Dr Burks was paged.
--- NOTE | 2020-05-29 14:40 | NUR ---
Note Dr Gr on the floor to assess pt.
[2020-05-29] MEDS ORDERED: HALOPERIDOL LACTATE 5 MG/ML VIAL IM PRN (14:45)
--- NOTE | 2020-05-29 14:45 | NUR ---
Note Dr Burks called back. Received order to give pt Haldol 1mg IVP now and another Haldol 1mg IVP in an hour if pt still agitated. Order changed now to IM instead of IVP - pt off tele since 11am - pt Med?Surg. Pt was given Haldol 1mg IVP at 1415. Pt now just settled down and resting.
--- NOTE | 2020-05-29 15:20 | NUR ---
Note Dr Jones (neuro) came to floor to assess pt, suggested pt might need Seroquel 25mg PO BID, if okay with Dr Burks. Dr Burks was called and stated Seroquel 25mg PO BID okay at this time. Order entered.
[2020-05-29 16:00] VITALS: BP_SYST 123
--- NOTE | 2020-05-29 17:30 | NUR ---
Note Pt was assessed by Dr Chiang at bedside - no new orders written.
--- NOTE | 2020-05-29 18:40 | NUR ---
Note Pt resting in bed at this time. Pt was given hygiene care for urine incontinence all shift. No SOB/resp distress or pain/discomfort noted at this time. IV in right forearm intact and patent infusing IVF's. Pt checked on q1' and PRN all shift for needs and care. Pt was maintained for isolation and safety precautions all shift. Pt's bed in low position and bed alarm on alll shift. Pt has bilateral wrist restraints on all shift. Side rails raised X3. No needs noted at this time. Pt next to nurses' station all shift for close observation for needs and care. Call light within reach.
--- NOTE | 2020-05-29 19:15 | NUR ---
Report received from day shift nurse. Pt is lying in bed awake, but confused and disoriented. Bilateral soft wrist restraints are on and no circulatory impairment noted. Pt is on oxygen at 2L/min per NC. IVF of D10W is infusing well in RFA at 50ml/hr. Skin is warm and dry to touch. No signs or symptoms of hypoglycemia or hyperglycemia noted. Fall, droplet isolation and safety precautions are in place.
[2020-05-29 20:00] VITALS: BP_SYST 128
[2020-05-29] MEDS: ATORVASTATIN 20 MG TABLET PO SCH (21:25)
[2020-05-29] MEDS: QUEtiapine FUMARATE 25 MG TABLET PO SCH (21:25)
[2020-05-29] MEDS ORDERED: DEXTROSE 50% JECT 50 ML DISP.SYRIN IVP PRN (21:45)
[2020-05-29] MEDS ORDERED: GLUCOSE (DEXTROSE) ORAL GEL -Adults PO PRN (21:45)
--- NOTE | 2020-05-29 21:45 | NUR ---
New orders received from Dr. Childress for accuchecks of 67 and 68.
[2020-05-29] MEDS: D10W 500 ML IV SCH (22:02)
--- NOTE | 2020-05-29 23:14 | NUR ---
Accucheck 108. Skin remains warm and dry to touch. IVF of D10W is infusing well in RFA at 75mls/hr without any signs of infiltration.
[2020-05-30] VITALS: BP_SYST 122
--- NOTE | 2020-05-30 | NUR ---
Pt remains confused and disoriented. IVF is infusing well in RFA.
[2020-05-30] MEDS: cefTRIAXone 1 GM IVPB PREMIX 50 ML IV SCH (00:19)
--- NOTE | 2020-05-30 01:10 | NUR ---
Accucheck 89. Skin remains warm and dry to touch. IVF of D10W is infusing well in RFA at 75mls/hr without any signs of infiltration. Pt remains confused, disoriented and restless. Fall, droplet isolation and safety precautions are in place.
--- NOTE | 2020-05-30 02:58 | NUR ---
Accucheck 115. Skin remains warm and dry to touch. IVF of D10W is infusing well in RFA at 75mls/hr without any signs of infiltration. Fall, droplet isolation and safety precautions are in place.
--- NOTE | 2020-05-30 04:26 | NUR ---
Returned telephone call to pt's son Patricia who was given update on pt's condition, per his request. All his questions were answered
--- NOTE | 2020-05-30 05:24 | NUR ---
Pt is still confused and disoriented. Accucheck 89. Skin remains warm and dry to touch. IVF of D10W is infusing well in RFA at 75mls/hr without any signs of infiltration. Fall, droplet isolation and safety precautions are in place.
[2020-05-30] MEDS: D10W 500 ML IV SCH ×3 (05:44→18:51)
[2020-05-30] MEDS: LEVOTHYROXINE SODIUM 0.1 MG TABLET PO SCH (05:45)
--- NOTE | 2020-05-30 06:55 | NUR ---
Pt is awake and remains confused/disoriented. Accucheck 98 this AM. Skin remains warm and dry to touch. IVF of D10W is infusing well in RFA at 75ml/hr without any signs of infiltration. Fall, droplet isolation and safety precautions are in place. Bilateral soft wrist restraints are on and no circulatory impairment noted. Will endorse to day shift nurse.
--- NOTE | 2020-05-30 07:30 | NUR ---
OPENING NOTES PT RESTING IN BED, CHEST RISE AND FALL NOTED. NONLABORED BREATHING NOTED, RECEIVING O2 AT 2LPM VIA NASAL CANNULA, TOLERATING WELL. IV LINE INTACT AND PATENT, NO SIGNS OF INFILTRATION NOTED, FLUIDS RUNNING ORDERED, NO ACUTE DISTRESS NOTED. ALL NEEDS MET. CALL LIGHT IN REACH. CONTINUE TO MONITOR.
[2020-05-30 08:00] VITALS: BP_SYST 121
[2020-05-30] MEDS: SPIRONOLACTONE 25 MG TABLET (ALDACTONE) PO SCH (08:40)
[2020-05-30] MEDS: FAMOTIDINE PF 20 MG/2 ML VIAL IVP SCH ×2 (08:40→21:55)
[2020-05-30] MEDS: FUROSEMIDE 40 MG TABLET PO SCH ×2 (08:41→21:57)
[2020-05-30] MEDS: CARVEDILOL 12.5 MG TABLET (COREG) PO SCH ×2 (08:41→21:56)
[2020-05-30] MEDS: SACUBITRIL/VALSARTAN 24 MG-26 MG 1 TABLET PO SCH ×2 (08:41→21:56)
[2020-05-30] MEDS: POLYETHYLENE GLYCOL 3350, 17 GM/ POWD.PACK PO SCH (08:41)
[2020-05-30] MEDS: ASPIRIN 81 MG TABLET(ECOTRIN) PO SCH (08:41)
[2020-05-30] MEDS: RIVAROXABAN 10 MG TABLET PO SCH (08:42)
[2020-05-30] MEDS: QUEtiapine FUMARATE 25 MG TABLET PO SCH ×2 (08:42→21:57)
[2020-05-30] MEDS: CHOLECALCIFEROL (VITAMIN D3) 2,000 UNIT TABLET PO SCH (08:42)
[2020-05-30] MEDS: ASCORBIC ACID 500 MG TABLET PO SCH (08:42)
[2020-05-30] MEDS: FLUoxetine HCL 20 MG CAPSULE (PROzac) PO SCH (08:42)
--- NOTE | 2020-05-30 09:32 | NUR ---
FACETIME AND CLEANED PT CLEANED PATIENT AND LINEN WITH VARUN PAZ. PT CLEAN AND DRY, TOLERATED WELL. PT RESTLESS. PT FACETIMED FAMILY, SWEETIEON SON ON FACE SHEET. CONTINUE TO MONITOR.
--- NOTE | 2020-05-30 10:22 | NUR ---
SPOKE TO DR. FRANKLIN REGARDING BACTROBAN OINTMENT, RECEIVED ORDERS TO STOP MED, VERIFIED, AND CARRIED OUT.
--- NOTE | 2020-05-30 10:35 | NUR ---
ROUNDS PT RESTLESS IN BED. ALL NEEDS MET. CALL LIGHT IN REACH. SOFT BILATERAL WRIST RESTRAINTS IN PLACE, NO SIGNS OF INJURY NOTED. CONTINUE TO MONITOR.
[2020-05-30 12:04] VITALS: BP_SYST 112
--- NOTE | 2020-05-30 12:06 | NUR ---
VITAL SIGNS TAKEN AND STABLE. ACCUCHECK DONE, TOLERATED WELL. REPLACED FLUIDS ORDERED PER MD. NO ACUTE DISTRESS NOTED. ALL NEEDS MET. CALL LIGHT IN REACH. CONTINUE TO MONITOR.
--- NOTE | 2020-05-30 15:38 | NUR ---
UNABLE TO SWALLOW MEDS REPOSITIONED PT WITH VARUN CHANCE. CHANGED LINEN ONCE MORE, PT CLEAN AND DRY. ACCUCHECK DONE. ATTEMPTED TO GIVE PATIENT MEDICATION, PT REFUSED TO OPEN MOUTH, CONSISTENTLY BITING DOWN. WILL INFORM MD. ATTEMPTED TO RE-ORIENT PT, PT CONFUSED AND RESTLESS. CONTINUE TO MONITOR.
--- NOTE | 2020-05-30 15:49 | NUR ---
SPOKE TO RADIOLOGY REGARDING ORDER FOR CT SCAN FROM 05/28, STATED WILL CALL BACK.
--- NOTE | 2020-05-30 15:50 | NUR ---
SPOKE TO DR. YATES REGARDING PT BEING UNABLE TO SWALLOW MEDS, MD AWARE. ALSO UPDATED ON CT SCAN, RECEIVED ORDERS, VERIFIED, AND CARRIED OUT.
--- NOTE | 2020-05-30 15:51 | NUR ---
HIGH ALERT NOTE: Called Dr. YATES back at [phone] identified within the medical roster to verify physician authenticity.
--- NOTE | 2020-05-30 15:58 | NUR ---
SPOKE TO RADIOLOGY, STATED ISRAEL WILL CALL WHEN HE COMES IN. AWAITING CALL BACK.
[2020-05-30 16:00] VITALS: BP_SYST 109
[2020-05-30] MEDS ORDERED: MIDAZOLAM HCL 2 MG/2 ML VIAL (VERSED) IVP ONE (16:00)
--- NOTE | 2020-05-30 16:01 | NUR ---
SPOKE TO ARCADIO FROM PHARM, UNABLE TO GIVE VERSED IF PT IS ON MEDSURG, WILL AWAIT CALL BACK FROM [facility] THEN WILL INFORM .
--- NOTE | 2020-05-30 18:30 | NUR ---
SPOKE TO BAG HANGER ISRAEL, STATED THAT PATIENT WAS UNCOOPERATIVE AND DID NOT HAVE MEDS TO CALM HIM ON 05/[address] VERBALIZED TO ISRAEL REGARDING VERSED THAT PATIENT IS UNABLE TO GET VERSED DUE TO BEING ON MEDSURG, UNABLE TO DO CT TONIGHT DUE TO PT BEING COVID AND MANY PATIENTS LINED UP FOR CT. WILL ENDORSE TO NOC NURSE.
--- NOTE | 2020-05-30 18:45 | NUR ---
CLOSING NOTES PT MOVING IN BED. NONLABORED BREATHING NOTED, RECEIVING O2 AT 2LPM VIA NASAL CANNULA, TOLERATING WELL. IV LINE INTACT AND PATENT, NO SIGNS OF INFILTRATION NOTED, FLUIDS RUNNING ORDERED, NO ACUTE DISTRESS NOTED. PT CLEAN AND DRY. ALL NEEDS MET. CALL LIGHT IN REACH. WILL ENDORSE TO [facility] NURSE INCLUDING CT INFO.
[2020-05-30 20:00] VITALS: BP_SYST 129
[2020-05-30] MEDS: ATORVASTATIN 20 MG TABLET PO SCH (21:57)
[2020-05-31 00:50] VITALS: BP_SYST 114
[2020-05-31] MEDS: cefTRIAXone 1 GM IVPB PREMIX 50 ML IV SCH (01:08)
[2020-05-31] MEDS: ALPRAZolam 0.25 MG TABLET PO PRN (01:08)
[2020-05-31] MEDS: D10W 500 ML IV SCH ×2 (01:18→08:30)
--- NOTE | 2020-05-31 03:10 | NUR ---
Accucheck Accucheck result is 96 mg/dL; no coverage; IVF infusing as ordered.
[2020-05-31 04:00] VITALS: BP_SYST 114
--- NOTE | 2020-05-31 04:15 | NUR ---
Agitated, restless Patient is not sleeping, he is restless, agitated, Haldol IM given as ordered.
[2020-05-31] MEDS: HALOPERIDOL LACTATE 5 MG/ML VIAL IM PRN (04:19)
--- NOTE | 2020-05-31 05:45 | NUR ---
Son, called in Patricia Peñaloza, son called to get update on father and I informed he is still confused. He is requesting a form, written documentation that states father is confused and incapacitated to make decisions. He would like paper faxed to him, I informed medical case manager would look at request and follow up. Addendum: 06/01/20 at 0718 by Soco Oates RN left voice mail message at ext [phone] to notify of his request
[2020-05-31] MEDS: LEVOTHYROXINE SODIUM 0.1 MG TABLET PO SCH (06:50)
--- NOTE | 2020-05-31 06:50 | NUR ---
Closing note Patient is still restless. Accucheck done w/ result of 96 mg/dL. IVF infusing well, safety and isolation precautions maintained, will endorse care. Addendum: 05/31/20 at 0800 by Soco Oates RN Accucheck result is 97 mg/dL, above is not result.
--- NOTE | 2020-05-31 08:00 | NUR ---
Initial note: Patient is awake, but confused, on Oxygen 3 L/M via NC, no sign of SOB. He is on D10W IVF at 75 ml/hr. He is also on bilateral soft wrist restraints, no sign of injury . Will continue monitor.
[2020-05-31 08:30] VITALS: BP_SYST 116
[2020-05-31] MEDS: FLUoxetine HCL 20 MG CAPSULE (PROzac) PO SCH (09:00)
[2020-05-31] MEDS: ASCORBIC ACID 500 MG TABLET PO SCH (09:00)
[2020-05-31] MEDS: CHOLECALCIFEROL (VITAMIN D3) 2,000 UNIT TABLET PO SCH (09:00)
[2020-05-31] MEDS: QUEtiapine FUMARATE 25 MG TABLET PO SCH ×2 (09:00→22:13)
[2020-05-31] MEDS: POLYETHYLENE GLYCOL 3350, 17 GM/ POWD.PACK PO SCH (09:00)
[2020-05-31] MEDS: ASPIRIN 81 MG TABLET(ECOTRIN) PO SCH (09:00)
[2020-05-31] MEDS: RIVAROXABAN 10 MG TABLET PO SCH (09:30)
[2020-05-31] MEDS: FUROSEMIDE 40 MG TABLET PO SCH ×2 (09:30→22:12)
[2020-05-31] MEDS: CARVEDILOL 12.5 MG TABLET (COREG) PO SCH ×2 (09:30→22:10)
[2020-05-31] MEDS: SACUBITRIL/VALSARTAN 24 MG-26 MG 1 TABLET PO SCH ×2 (09:30→22:16)
[2020-05-31] MEDS: SPIRONOLACTONE 25 MG TABLET (ALDACTONE) PO SCH (09:30)
[2020-05-31] MEDS: FAMOTIDINE PF 20 MG/2 ML VIAL IVP SCH ×2 (09:48→22:09)
[2020-05-31 12:40] VITALS: BP_SYST 96
--- NOTE | 2020-05-31 15:21 | NUR ---
Meds Due meds given, crushed and mixed in applesauce. Patient only takes two teaspoons of the mixture. He licked his lips and took a sip of the glucerna drink. Addendum: 06/01/20 at 0731 by Soco Oates RN time entry error. above entry is for [id number]
[2020-05-31 17:18] VITALS: BP_SYST 104
--- NOTE | 2020-05-31 19:00 | NUR ---
Closing note: Patient is stable, no sign of distress, having very poor oral intake . He is still on D10 W IVF at 75 ml/hr.
--- NOTE | 2020-05-31 19:20 | NUR ---
Opening note Patient resting in bed, very restless, he is not covered w/ sheets, he has removed them. No distress, non labored breathing. IVF infusing via IV to RFA. Bilateral wrist restraints. Bed is locked in lowest position, and bed alarm is on.
[2020-05-31 20:00] VITALS: BP_SYST 114
[2020-05-31] MEDS: ATORVASTATIN 20 MG TABLET PO SCH (22:13)
--- NOTE | 2020-05-31 22:15 | NUR ---
Meds Due meds given, crushed and mixed in applesauce. Patient only takes two teaspoons of the mixture. He licked his lips and took a sip of the glucerna drink.
--- NOTE | 2020-05-31 23:30 | NUR ---
Dr. Childress s/w Dr. Childress and [facility] does not have D10 IVF. I received new medication orders TORB, for D5NS at 75 ml/hr.
[2020-06-01] VITALS (7 sets, daily range): BP systolic 92–102
[2020-06-01] MEDS: D5NS 1,000 ML IV SCH ×2 (00:17→13:21)
[2020-06-01] MEDS: ALPRAZolam 0.25 MG TABLET PO PRN (00:22)
[2020-06-01] MEDS: LEVOTHYROXINE SODIUM 0.1 MG TABLET PO SCH (06:22)
--- NOTE | 2020-06-01 07:39 | NUR ---
closing note endorsed care stable
--- NOTE | 2020-06-01 08:40 | NUR ---
INITIAL ROUNDS Received pt awake, confused, restless, kicking out his legs. Pt on Airborne and Droplet isolation for Covid 19+. No s/s resp distress, no s/s pain or discomfort. Pt on bilateral soft wrist restraints for safety. IVF infusing well to RFA at ordered rate with no s/s infiltration to site. Pt voided, pt cleaned and fresh chux and gown placed. Pt repositioned with pillow support and heels off-loaded for skin care and comfort. Side rails up x3, bed alarm on room close to nursing station for safety.
--- NOTE | 2020-06-01 10:32 | NUR ---
Wound Evaluation: Wound Consult ordered for Low Nadir Score. Patient evaluated for a low Nadir score of 13. Patient was awake, alert, oriented and received in a Sonia Bed with an Atmos-Air 9000 mattress. Patient needs assist to turn in bed (patient moves, but does not turn purposefully). Skin Assessment: 1. 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 Recommend: Cleanse involved area with mild soap and water. Pat dry. Apply moisture barrier cream to involved area. Perform site care 4 times daily as needed for soiling. 2. Left knee: Scab, present on admission. Dry, stable. Recommend: No dressing needed. Continue to monitor site every shift. 3. Left lateral malleolus: Scab, present on admission. Dry, stable. Recommend: Cover site with foam dressing for protection. Change dressing and assess site daily and as needed for dressing soiling or dislodgment. Recommend: Encourage and assist patient with repositioning side to side only every 2 hours with pillow support. Elevate, off-load and float bilateral heels with one pillow lengthwise under each extremity at all times. Offload pressure areas with pillows for pressure re-distribution. Perform skin care and monitor skin integrity Q shift. Use moisture barrier cream on moisture susceptible areas QID and PRN for soiling.
[2020-06-01] MEDS: RIVAROXABAN 10 MG TABLET PO SCH (10:42)
[2020-06-01] MEDS: FLUoxetine HCL 20 MG CAPSULE (PROzac) PO SCH (10:43)
[2020-06-01] MEDS: ASPIRIN 81 MG TABLET(ECOTRIN) PO SCH (10:44)
[2020-06-01] MEDS: SPIRONOLACTONE 25 MG TABLET (ALDACTONE) PO SCH ×2 (10:45→11:25)
[2020-06-01] MEDS: FUROSEMIDE 40 MG TABLET PO SCH ×2 (10:46→22:13)
[2020-06-01] MEDS: CHOLECALCIFEROL (VITAMIN D3) 2,000 UNIT TABLET PO SCH (10:46)
[2020-06-01] MEDS: QUEtiapine FUMARATE 25 MG TABLET PO SCH ×2 (10:46→22:13)
[2020-06-01] MEDS: ASCORBIC ACID 500 MG TABLET PO SCH (10:46)
[2020-06-01] MEDS: POLYETHYLENE GLYCOL 3350, 17 GM/ POWD.PACK PO SCH (10:47)
[2020-06-01] MEDS: CARVEDILOL 12.5 MG TABLET (COREG) PO SCH ×3 (10:48→21:00)
[2020-06-01] MEDS: FAMOTIDINE PF 20 MG/2 ML VIAL IVP SCH ×2 (10:48→22:12)
[2020-06-01] MEDS: SACUBITRIL/VALSARTAN 24 MG-26 MG 1 TABLET PO SCH ×2 (10:50→22:13)
[2020-06-01] MEDS ORDERED: THIAMINE HCL 100 MG TABLET PO ONE (11:45)
--- NOTE | 2020-06-01 11:53 | NUR ---
SPOKE WITH PATIENT'S SON Spoke with patient's son, he needs a Note of Incompetence signed by a doctor to pay his bills, etc. Will inform HCP case management assistant. Per son do not give any information to Roberta-she states she is the patient's medical secretary receptionist.
[2020-06-01] MEDS: DEXAMETHASONE SOD PHOSPHATE 10 MG/ML VIAL IVP SCH (13:22)
--- NOTE | 2020-06-01 16:15 | NUR ---
ROUNDS Pt remains restless, no s/s resp distress, no s/s pain or discomfort. Pt voided and had a BM, pt given bed bath, fresh gown, fresh linens and chux placed. All precautions remain in place.
--- NOTE | 2020-06-01 18:40 | NUR ---
SKIN CARE Pt voided, pt cleaned up fresh chux placed . Right lateral ankle dry scab cleansed with mild soap and water, covered with a foam dressing and secured in place with Demetri wrap and slipper sock placed. Left lateral ankle dry scab cleansed with mild soap and water, covered with a foam dressing and secured in place with Demetri wrap and slipper sock placed over foot.
--- NOTE | 2020-06-01 19:10 | NUR ---
OPENING NOTES PATIENT IS RESTING, HOB ELEVATED. IV SITE PATENT, DRESSINGS C/D/I, IVF RUNNING. NO SIGNS OF ACUTE RESPIRATORY DISTRESS NOTED. PATIENT IS KICKING OFF BLANKETS AND RESTLESS. PATIENT IS ON BILATERAL SOFT RESTRAINTS FOR SAFETY. CALL LIGHT WITHIN REACH, BED ALARM ON, BED AT LOWEST POSITION. WILL CONTINUE TO MONITOR.
--- NOTE | 2020-06-01 19:15 | NUR ---
CLOSING NOTE Pt remains restless and confused, at times mumbling to himself. No s/s resp distress, no s/s pain or discomfort.Airborne and droplet precautions maintained throughout shift. IVF infusing well to RFA at ordered rate with no s/s infiltration to site. Bilat wrist restraints in place for safety. Side rails up x4, bed alarm on, room close to nursing station for safety. HOB elevated for aspiration precautions.
--- NOTE | 2020-06-01 21:30 | NUR ---
PATIENT RESISTS WHEN PROVIDING INCONTINENCE CARE. PROVIDING REORIENTATION TO PATIENT. PATIENT TAKES SCHEDULED MEDICATION CRUSHED. NO SIGNS OF DISTRESS NOTED. WILL CONTINUE TO MONITOR .
[2020-06-01] MEDS: ATORVASTATIN 20 MG TABLET PO SCH (22:13)
--- NOTE | 2020-06-01 23:43 | NUR ---
RT NOTES O2 INCREASED TO 6L TO KEEP SAT ABOVE .92 RN MADE AWARE.
[2020-06-02] VITALS: BP_SYST 111
[2020-06-02] MEDS: D5NS 1,000 ML IV SCH ×2 (01:38→16:35)
--- NOTE | 2020-06-02 01:39 | NUR ---
PATIENT RESTING, NO SIGNS OF ACUTE RESPIRATORY DISTRESS AT THIS TIME. WILL CONTINUE TO MONITOR.
[2020-06-02] MEDS: LEVOTHYROXINE SODIUM 0.1 MG TABLET PO SCH (07:00)
--- NOTE | 2020-06-02 07:02 | NUR ---
CLOSING NOTES PATIENT IS RESTING, HOB ELEVATED. IV SITE PATENT, DRESSINGS C/D/I, IVF RUNNING. NO SIGNS OF ACUTE RESPIRATORY DISTRESS NOTED, 6L NC. PATIENT IS ON BILATERAL SOFT RESTRAINTS FOR SAFETY, NO SKIN BREAKDOWN NOTED. CALL LIGHT WITHIN REACH, BED ALARM ON, BED AT LOWEST POSITION. COVID ISOLATION MAINTAINED THROUGHOUT SHIFT. ALL NEEDS MET THROUGHOUT SHIFT. WILL ENDORSE CARE TO ONCOMING SHIFT.
--- NOTE | 2020-06-02 07:31 | NUR ---
Opening Note received SBAR report from manufacturing supervisor 2nd shift RN, patient resting in bed, respirations even and unlabored on 6L nasal cannula, no acute distress noted, educated patient on use of call light and asked to call for assistance, call light in reach, bed in low and locked position, bed alarm on, soft wrist restraints in place.
[2020-06-02 08:00] VITALS: BP_SYST 93
[2020-06-02] MEDS: CHOLECALCIFEROL (VITAMIN D3) 2,000 UNIT TABLET PO SCH (08:57)
[2020-06-02] MEDS: ASCORBIC ACID 500 MG TABLET PO SCH (08:57)
[2020-06-02] MEDS: ASPIRIN 81 MG TABLET(ECOTRIN) PO SCH (08:58)
[2020-06-02] MEDS: FLUoxetine HCL 20 MG CAPSULE (PROzac) PO SCH (08:58)
[2020-06-02] MEDS: QUEtiapine FUMARATE 25 MG TABLET PO SCH ×2 (08:59→22:00)
[2020-06-02] MEDS: POLYETHYLENE GLYCOL 3350, 17 GM/ POWD.PACK PO SCH (08:59)
[2020-06-02] MEDS: SACUBITRIL/VALSARTAN 24 MG-26 MG 1 TABLET PO SCH ×2 (08:59→22:00)
[2020-06-02] MEDS: CARVEDILOL 12.5 MG TABLET (COREG) PO SCH ×2 (09:00→22:00)
[2020-06-02] MEDS: SPIRONOLACTONE 25 MG TABLET (ALDACTONE) PO SCH (09:00)
[2020-06-02] MEDS: FUROSEMIDE 40 MG TABLET PO SCH ×2 (09:00→22:00)
[2020-06-02] MEDS: FAMOTIDINE PF 20 MG/2 ML VIAL IVP SCH ×2 (09:03→22:00)
[2020-06-02] MEDS: THIAMINE HCL 100 MG TABLET PO SCH (09:04)
[2020-06-02] MEDS: ALPRAZolam 0.25 MG TABLET PO PRN (09:04)
--- NOTE | 2020-06-02 09:05 | NUR ---
Agitation patient agitated, patient kicking legs and rocking back and forth, attempted to calm patient, attempted to redirect patient, unsuccessful, PRN xanax indicated for agitation, educated patient on use and side effects of PRN xanax, patient tolerated medication administration well, no acute distress noted.
--- NOTE | 2020-06-02 09:40 | NUR ---
Physician Rounds Dr. Hyman at bedside examining patient.
--- NOTE | 2020-06-02 09:55 | NUR ---
IV access IV to right forearm leaking, IV catheter removed, catheter intact, no bleeding, educated patient on purpose and procedure for IV catheter placement, new IV catheter placed to left forearm, 22G, flushes easily with blood return, patient tolerated well, patient incontinent of urine, patient cleaned and assisted to reposition.
[2020-06-02] MEDS: RIVAROXABAN 10 MG TABLET PO SCH (10:06)
--- NOTE | 2020-06-02 10:20 | NUR ---
Physician Rounds rounds with Dr. Fishman at nurses station, informed him that patient is still confused and agitated.
--- NOTE | 2020-06-02 12:20 | NUR ---
Incontinent patient incontinent of urine, patient cleaned and assisted to reposition, patient tolerated well, no acute distress noted.
[2020-06-02 12:29] VITALS: BP_SYST 112
[2020-06-02] MEDS: DEXAMETHASONE SOD PHOSPHATE 10 MG/ML VIAL IVP SCH (12:59)
--- NOTE | 2020-06-02 14:26 | NUR ---
RN Rounds patient resting in bed, respirations even and unlabored, no acute distress noted, no pain noted using FLACC scale.
--- NOTE | 2020-06-02 16:40 | NUR ---
Repositioned repositioned patient, patient tolerated well, respirations even and unlabored on 6L nasal cannula, no acute distress noted, no pain noted using FLACC scale.
--- NOTE | 2020-06-02 18:36 | NUR ---
Repositioned repositioned patient in bed, patient tolerated well, no acute distress noted, no pain noted using FLACC scale.
[2020-06-02 18:38] VITALS: BP_SYST 104
--- NOTE | 2020-06-02 19:07 | NUR ---
Closing Note SBAR report given to receiving RN, patient resting in bed, respirations even and unlabored on 6L nasal cannula, no acute distress noted, no pain noted using FLACC scale, educated patient on use of call light and asked to call for assistance, call light in reach, bed in low and locked position, bed alarm on, care endorsed to maintenance technician 3rd shift RN.
--- NOTE | 2020-06-02 19:35 | NUR ---
OPENING NOTE RECEIVED PATIENT IN BED, SLEEPING WITH NO SIGNS OF DISTRESS NOTED. PATIENTS BREATHING APPEARED LABORED ON OXYGEN 6LPM VIA NC. PROVIDED ORAL CARE AND ELEVATED HOB. PULSE OXYGEN 94% AT THIS TIME. PATIENT DISORIENTED, SPEECH IS GARBLED. PATIENT IS AROUSABLE TO TACTILE STIMULI. INCONTINENCE CARE PROVIDED. PATIENT TOLERATED. BILATERAL WRIST RESTRAINTS REMAIN IN PLACE WITH NO SIGNS OF INJURY NOTED. SAFETY, FALL, ASPIRATION, AND ISOLATION PRECAUTIONS IN PLACE. BED LOCKED IN LOW POSITION WITH CALL LIGHT IN REACH. WILL CONTINUE TO MONITOR.
[2020-06-02 20:00] VITALS: BP_SYST 89
--- NOTE | 2020-06-02 21:30 | NUR ---
MEDICATION PASS CRUSHED MEDICATION AND MIXED IN APPLESAUCE. PATIENT WOULD NOT SWALLOW MEDICATIONS. HE SPIT OUT OR WOULD POCKET IN HIS CHEEK. PATIENT DID NOT TOLERATE PO MEDICATIONS. PATIENT APPEARS LETHARGIC, DISORIENTED, AROUSABLE TO AUDITORY AND LIGHT TACTILE STIMULI. WILL CONTINUE TO MONITOR.
[2020-06-02] MEDS: ATORVASTATIN 20 MG TABLET PO SCH (22:00)
--- NOTE | 2020-06-02 22:25 | NUR ---
WOUNDS RED DRAINAGE NOTED FROM UMBILICUS, DARK SCAB WITH RED DRAINAGE NOTED. CLEANED WITH NS AND COVERED WITH FOAM DRESSING. SCAB WITH RED OPEN AREA NOTED TO RIGHT ELBOW. CLEANSED WITH NS AND COVERED WITH FOAM DRESSING. PICTURES TAKEN AND PLACED IN CHART.
--- NOTE | 2020-06-03 01:30 | NUR ---
RN ROUNDS INCONTINENCE CARE PROVIDED, LINENS CHANGED, REPOSITIONED. PATIENT TOLERATED.
[2020-06-03 04:00] VITALS: BP_SYST 131
--- NOTE | 2020-06-03 06:15 | NUR ---
CLOSING NOTE PATIENT TOLERATED PO MEDICATION CRUSHED AND MIXED IN APPLESAUCE. BLOOD SUGAR 127. INCONTINENCE CARE PROVIDED, LINENS CHANGED. PULSE OX 93% ON OXYGEN 6LPM VIA NC. PATIENT STABLE AT THIS TIME. SAFETY, FALL, ASPIRATION AND ISOLATION PRECAUTIONS REMAIN IN PLACE. BED LOCKED IN LOW POSITION WITH CALL LIGHT IN REACH. WILL CONTINUE TO MONITOR UNTIL ENDORSED TO AM NURSE.
[2020-06-03] MEDS: LEVOTHYROXINE SODIUM 0.1 MG TABLET PO SCH (06:26)
[2020-06-03] MEDS: D5NS 1,000 ML IV SCH ×2 (06:26→18:30)
--- NOTE | 2020-06-03 06:30 | NUR ---
SPOKE WITH SON SON CALLED IN, UPDATED HIM OF PATIENTS STATUS. SON IS REQUESTING A WRITTEN LETTER FROM A PHYSICIAN STATING THE CONDITION OF THE PATIENT SO HE COULD GAIN AUTHORITY TO HANDLE PATIENTS BUSINESS MATTERS.
--- NOTE | 2020-06-03 07:32 | NUR ---
Opening Note received SBAR report from restaurant shift leader RN, patient resting in bed, respirations even and unlabored on 6L nasal cannula, O2Sat 95%, no acute distress noted, soft wrist restraints in place, educated patient on use of call light and asked to call for assistance, call light in reach, bed in low and locked position, bed alarm on.
[2020-06-03] MEDS: ASCORBIC ACID 500 MG TABLET PO SCH (09:00)
[2020-06-03] MEDS: THIAMINE HCL 100 MG TABLET PO SCH (09:00)
[2020-06-03] MEDS: CARVEDILOL 12.5 MG TABLET (COREG) PO SCH ×2 (09:00→20:23)
[2020-06-03] MEDS: RIVAROXABAN 10 MG TABLET PO SCH (09:00)
[2020-06-03] MEDS: QUEtiapine FUMARATE 25 MG TABLET PO SCH ×2 (09:00→20:24)
[2020-06-03] MEDS: POLYETHYLENE GLYCOL 3350, 17 GM/ POWD.PACK PO SCH (09:00)
[2020-06-03] MEDS: CHOLECALCIFEROL (VITAMIN D3) 2,000 UNIT TABLET PO SCH (09:00)
[2020-06-03] MEDS: FUROSEMIDE 40 MG TABLET PO SCH ×2 (09:00→20:23)
[2020-06-03] MEDS: ASPIRIN 81 MG TABLET(ECOTRIN) PO SCH (09:00)
[2020-06-03] MEDS: SPIRONOLACTONE 25 MG TABLET (ALDACTONE) PO SCH (09:00)
[2020-06-03] MEDS: SACUBITRIL/VALSARTAN 24 MG-26 MG 1 TABLET PO SCH ×2 (09:00→20:23)
[2020-06-03] MEDS: FLUoxetine HCL 20 MG CAPSULE (PROzac) PO SCH (09:00)
[2020-06-03] MEDS: FAMOTIDINE PF 20 MG/2 ML VIAL IVP SCH ×2 (09:06→20:13)
--- NOTE | 2020-06-03 09:08 | NUR ---
Refused Medication linen changed, assisted patient to reposition in bed, educated patient on use and side effects of medication, attempted to assisted patient with PO medication administration, patient spits out medication, attempted to assist patient with breakfast, patient refusing breakfast, patient states "no", patient resting in bed, respirations even and unlabored, no pain noted using FLACC scale, no acute distress noted.
[2020-06-03 09:10] VITALS: BP_SYST 134
--- NOTE | 2020-06-03 11:10 | NUR ---
Incontinent patient incontinent of urine, patient cleaned and assisted to reposition, patient tolerated well, no acute distress noted.
[2020-06-03] MEDS: DEXAMETHASONE SOD PHOSPHATE 10 MG/ML VIAL IVP SCH (11:56)
--- NOTE | 2020-06-03 12:57 | NUR ---
Nutrition F/U RD reviewed pt's current EMR record including diet hx, MD notes, RN notes, pertinent labs/meds/procedures, care trends, and care activity Admitting Diagnosis COVID, pneumonia Reviewed Pertinent Medical/Surgical Hx Medical Record Patient Medical History Comment: PMH: CHF, atr fibr, COPD, pericarditis per physician notes SARS-CoV-2 Ag (Rapid) Positive 05/[address] bedside interview deferred d/t isolation precautions and PPE conservation efforts. Pt's primary RN has no phone extensions for today and RN n/a during RD rounds. Per EMR review, pt remains confused/disoriented, and PO intake has significantly regressed since previous RD visit w/ less than 25% x last 10 meals, possibly d/t confusion. Per RN note, pt refused breakfast this morning. New weight changes noted -- 102.710 kg: (-) 8 kg in 5 days. Pt is currently not meeting his needs and is at risk of being malnourished. Recommend increase Glucerna frequency to TID to promote PO intake. Recommend continue encourage increase PO intake during meal times and consider appetite stimulant if/when medically feasible. If negligible PO intake persists, pt may benefit from alternative means of nutrition. Will change risk level to high. Current Diet Order/Nutrition Support Cardiac, Standard Carb-60 gm Diet w/ Glucerna BID x 5 days Pertinent Medications zinc sulfate, VIT C, VIT D3, aldactone, lasix, thiamine, decadron, lipitor, xarelto, synthroid, zofran Pertinent Labs Na 131 L, BUN 30 H, BG 102 H, POC BG 133/127/122H Skin Integrity Comment: Nadir scale: 14; per nursing notes, L knee w/ dry scab and skin tear on R elbow Current % PO Less than 25% x 10 meals Estimated Energy Expenditure (kcals/day) 6156-9274 kcal/day (30-35 kcal/kg CBW for acute state) Estimated Protein Required (g/day) 121-186 gm/day (1.3-2 gm/kg CBW for acute state) Estimated Fluid Required (l/day) 2.8-3.3 L/day (1 ml/kcal/day for maintenance) Problem/Etiology/Signs/Symptoms Suboptimal nutritional intakes related to metabolic demands as evidenced by fair PO intake records. *ongoing Expected Outcomes/Goals - Monitor appetite and PO intakes w/ goal of pt meeting at least 50% of estimated nutritional needs, labs trending WNL, normal GI function, and skin integrity/wt maintenance Dietitian Recommendations * Recommend Cardiac, Standard Carb-60g diet w/ Glucerna TID (ONS provides 660 kcal/day, 30 gm protein/day) * Consider appetite stimulant if/when medically feasible * If pt continues to have negligible PO intake, consider alternative means of nutrition Follow Up High Risk: F/U in 2-3 days
[2020-06-03 12:59] VITALS: BP_SYST 134
--- NOTE | 2020-06-03 13:01 | NUR ---
RN Rounds patient resting in bed, respirations even and unlabored on 6L nasal cannula, no acute distress noted, no pain noted using FLACC scale.
--- NOTE | 2020-06-03 13:24 | NUR ---
Dietitian Recommendations * Recommend Cardiac, Standard Carb-60g diet w/ Glucerna TID (ONS provides 660 kcal/day, 30 gm protein/day) * Consider appetite stimulant if/when medically feasible * If pt continues to have negligible PO intake, consider alternative means of nutrition Please see Nutrition F/U for details. EP,RD
--- NOTE | 2020-06-03 15:05 | NUR ---
RN rounds patient resting in bed, respirations even and unlabored on 6L nasal cannula, O2Sat 93%, no acute distress noted, no pain noted using FLACC scale.
[2020-06-03 16:40] VITALS: BP_SYST 146
--- NOTE | 2020-06-03 16:45 | NUR ---
Incontinent patient incontinent of urine, patient cleaned and gown changed, assisted patient to reposition, patient tolerated well.
[2020-06-03] MEDS: HALOPERIDOL LACTATE 5 MG/ML VIAL IM PRN ×2 (17:38→23:10)
--- NOTE | 2020-06-03 17:39 | NUR ---
Agitation patient yelling and kicking legs over side rail, attempted to reorient patient, attempted to calm patient, comfort needs met, patient remains agitated, PRN haldol indicated for agitation, educated patient on use and side effects of PRN haldol, patient tolerated medication administration well, no acute distress noted.
--- NOTE | 2020-06-03 18:30 | NUR ---
Repositioned assisted patient to reposition, patient tolerated well, respirations even and unlabored on 6L nasal cannula, O2Sat 93%, no acute distress noted.
[2020-06-03 19:00] VITALS: BP_SYST 124
--- NOTE | 2020-06-03 19:12 | NUR ---
Closing Note SBAR report given to receiving RN, patient resting in bed, respirations even and unlabored on 6L nasal cannula, O2Sat 96%, no acute distress noted, soft wrist restraints in place, educated patient on use of call light and asked to call for assistance, call light in reach, bed in low and locked position, bed alarm on, care endorsed to overnight babysitter RN.
--- NOTE | 2020-06-03 19:15 | NUR ---
change of shift.pt.presents isolation status;droplet.covid19+ status.pt.presents restraints;wrist bilateral.pt.presents affect;ResTLESS.LOC;CONFuSED.PT'S SPEeCH StATUS;GRoaN;NON-VERBAL.PT.PResents IV ACCES LOCATION;LT.FORearm. IV FLUIDS INFUSiNG.GENERAL STatUS STABlE.ReSPiraTOrY STatuS:PT.RECEiVing O2 THERaPY VIA NASAL cANNULAE. CALL LIGhT/TELEPHOnE W/IN ACCESS OF THE PT.
[2020-06-03 20:00] VITALS: BP_SYST 124
--- NOTE | 2020-06-03 20:00 | NUR ---
pt.assessed.v/s assessed values w/in normal limits.restraints;wrist;bilateral in place:skin/circulation assessed wnl.pt.assessed for cleanliness.pt.repositioned.iv access intact;patent iv fluids infusing.per flacc pt.absent facial grimaces/body posturing.general status stable.respiratory status slight labored;02-sat%=98%.o2 therapy administered@6l/min via nasal cannulae.call light/telephone placed w/in access of the pt.
[2020-06-03] MEDS: ATORVASTATIN 20 MG TABLET PO SCH (20:24)
--- NOTE | 2020-06-03 21:00 | NUR ---
2100pmedications.i have attemted a trial w apple sauce.pt.refused the apple sauce.no medication was administered.pt.refused all po attempts to feed.
--- NOTE | 2020-06-03 22:00 | NUR ---
pt.assessed.restraints wrist;bilateral assessed in place.skin/circulation assessed wnl.pt.assessed for cleanliness.pt.repositioned. per flacc pain mgx pt.absent facial grimaces/body posturing.iv access intact;patent iv fluids infusing.general status stable.respiratory status slight labored.02-sat%=98%.call light/telephone placed w/in access of the pt.
--- NOTE | 2020-06-03 23:00 | NUR ---
pt.presented affect;restless/agitation.i have administered haldol:1mg im.per protocol.to assess the efficacy of the medication per protocol. Addendum: 06/04/20 at 0122 by Reymundo Otero RN i have assessed the blood glucose;value;131mg/dl.no insulin administered the sliding scale.parameters.
[2020-06-04] VITALS: BP_SYST 136
--- NOTE | 2020-06-04 | NUR ---
pt.assessed.v/s assessed values wnl.restraints in place skin/circulation assessed wnl.pt.assessed for cleanliness.pt.repositioned. per flacc pain mgx pt.absent facial grimaces/body posturing.iv access intact;patent iv fluids infusing.general status stable.respiratory status stable slight labored:02-sat%=96%.call light/telephone placed w/in access of the pt.
--- NOTE | 2020-06-04 01:30 | NUR ---
IV PLACEMENT: # 20 gauge angiocath placed to left forearm. Use of asceptic technique. Opsite placed over site. Blood return noted. Flushed with 10 cc of normal saline. No evidence of infiltration noted. Patient tolerated. Addendum: 06/05/20 at 0149 by Brooks Taylor RN wrong entry of time and date, disregard.
--- NOTE | 2020-06-04 02:00 | NUR ---
pt.assessed.restraints assessed in place skin/circulation assessed wnl.pt.assessed for cleanliness.pt.repositioned.iv access intact;patent iv fluids infusing.pt.assessed for cleanliness.pt.repositioned.general status stable.respiratory status slight labored:02-sat%= 96%.call light/telephone placed w/in access of the pt.
[2020-06-04 04:00] VITALS: BP_SYST 135
--- NOTE | 2020-06-04 04:00 | NUR ---
pt.assessed.restraints assessed in place.skin /circulation wnl.pt.assessed for cleanliness.pt.cleaned/repositioned.iv access intact;patent iv fluids infusing.per flacc pain mgx pt.absent facial grimaces/body posturing.general status stable.lrespiratory status stable;slight labored;02-sat%=96%.call light/telephone placed w/in access of the pt.
[2020-06-04] MEDS: D5NS 1,000 ML IV SCH ×2 (04:32→22:01)
[2020-06-04] MEDS: LEVOTHYROXINE SODIUM 0.1 MG TABLET PO SCH (06:00)
--- NOTE | 2020-06-04 06:18 | NUR ---
pt.assessed.pt.assessed for cleanliness.pt.cleaned/repositioned/blood glucose assessed;value;127mg/dl.restraints assessed in place.skin/circulation assessed wnl.iv access intact;patent iv fluids infusing.i have changed the iv fluids bag.i have weighed the pt;chf/lasix.general status stable.respiratory status slight labored.02-sat%=96%.call light/telephone placed w/in access of the pt.
[2020-06-04 06:54] LABS: BASOPHILS % (AUTO) 0.1 % (0.0-2.0); HEMATOCRIT 36.1 % (36-54); HEMOGLOBIN 10.3 g/dL (14.0-18.0); LYMPHOCYTES # (AUTO) 0.4 K/uL (1.0-5.5); LYMPHOCYTES % (AUTO) 1.4 % (20.5-51.5); MEAN CORPUSCULAR HEMOGLOBIN 17 pg (27-31); MEAN CORPUSCULAR HGB CONC 29 % (32-36); MEAN CORPUSCULAR VOLUME 60 fL (79.0-98.0); MONOCYTES # (AUTO) 0.5 K/uL (0.0-1.0); MONOCYTES % (AUTO) 2.1 % (1.7-9.3); NEUTROPHILS # (AUTO) 23.9 K/uL (1.8-7.7); NEUTROPHILS % (AUTO) 96.4 % (40.0-70.0); PLATELET COUNT (AUTO) 288 K/uL (130-430); RED BLOOD CELL COUNT(AUTO) 5.98 MIL/uL (4.2-6.2); WHITE BLOOD COUNT (AUTO) 24.8 K/uL (4.8-10.8)
[2020-06-04 07:17] LABS: ALANINE AMINOTRANSFERASE 46 U/L (12-78); ALBUMIN 2.7 g/dL (3.4-4.8); ANION GAP 13 (5-15); ASPARTATE AMINOTRANSFERASE 79 U/L (10-37); CALCIUM 9.5 mg/dL (8.4-11.0); CHLORIDE 116 mmol/L (98-107); CREATININE 1.28 mg/dL (0.55-1.30); GLUCOSE 127 mg/dL (70-99); POTASSIUM 5.2 mmol/L (3.5-5.1); SODIUM SERUM 148 mmol/L (136-145); TOTAL BILIRUBIN 1.1 mg/dL (0.0-1.0); UREA NITROGEN, BLOOD 37 mg/dL (8-21)
--- NOTE | 2020-06-04 07:30 | NUR ---
Patient appears restless, on 6L nasal cannula, O2Sat 90%. Soft wrist restraints in place; call light within reach, bed locked at the lowest position with bed alarm on.
[2020-06-04] MEDS: CARVEDILOL 12.5 MG TABLET (COREG) PO SCH ×2 (08:21→21:00)
[2020-06-04] MEDS: SACUBITRIL/VALSARTAN 24 MG-26 MG 1 TABLET PO SCH ×2 (08:21→21:00)
[2020-06-04] MEDS: ASPIRIN 81 MG TABLET(ECOTRIN) PO SCH (08:21)
[2020-06-04] MEDS: SPIRONOLACTONE 25 MG TABLET (ALDACTONE) PO SCH (08:21)
[2020-06-04] MEDS: FUROSEMIDE 40 MG TABLET PO SCH (08:21)
[2020-06-04] MEDS: POLYETHYLENE GLYCOL 3350, 17 GM/ POWD.PACK PO SCH (08:21)
[2020-06-04] MEDS: FAMOTIDINE PF 20 MG/2 ML VIAL IVP SCH ×2 (08:21→21:56)
[2020-06-04] MEDS: CHOLECALCIFEROL (VITAMIN D3) 2,000 UNIT TABLET PO SCH (08:22)
[2020-06-04] MEDS: FLUoxetine HCL 20 MG CAPSULE (PROzac) PO SCH (08:22)
[2020-06-04] MEDS: THIAMINE HCL 100 MG TABLET PO SCH (08:22)
[2020-06-04] MEDS: QUEtiapine FUMARATE 25 MG TABLET PO SCH ×2 (08:22→21:00)
[2020-06-04] MEDS: RIVAROXABAN 10 MG TABLET PO SCH (08:22)
[2020-06-04] MEDS: ASCORBIC ACID 500 MG TABLET PO SCH (08:22)
[2020-06-04] MEDS: HALOPERIDOL LACTATE 5 MG/ML VIAL IM PRN (10:05)
--- NOTE | 2020-06-04 11:00 | NUR ---
Dr. Fishman is at bedside assessing patient. Patient's current condition is informed, and Dr. Fishman is informed that the patient's son would like to speak to him.
[2020-06-04 12:00] VITALS: BP_SYST 140
[2020-06-04] MEDS: DEXAMETHASONE SOD PHOSPHATE 10 MG/ML VIAL IVP SCH (13:07)
[2020-06-04] MEDS ORDERED: HALOPERIDOL LACTATE 5 MG/ML VIAL IM PRN (15:00)
--- NOTE | 2020-06-04 15:00 | NUR ---
Patient is taken to CT scan of the head.
[2020-06-04] MEDS: FUROSEMIDE 40 MG/4 ML VIAL IVP ONE ×2 (15:44→16:24)
[2020-06-04 16:00] VITALS: BP_SYST 130
[2020-06-04] MEDS ORDERED: PIPERACILLIN/TAZO 3.375/DEX-IS 50 ML IV ONE (16:00)
--- NOTE | 2020-06-04 16:00 | NUR ---
Blood sugar 138. No coverage needed.
--- NOTE | 2020-06-04 16:10 | NUR ---
O2 sat at 88-91% with 12L oximizer. Dr. Hyman is paged. Awaiting call back.
--- NOTE | 2020-06-04 16:48 | NUR ---
Dr. Fishman is paged for patient's O2 sat at 88-91% despite 12L oximizer. awaiting call back.
--- NOTE | 2020-06-04 17:20 | NUR ---
Dr. Fishman calls back. Patient's condition is informed. order is given.
--- NOTE | 2020-06-04 17:30 | NUR ---
Dr. Hyman calls back. States patient will be on BiPaP. Dr. Fishman is informed of Dr. Hyman's decision.
--- NOTE | 2020-06-04 19:30 | NUR ---
INITIAL NOTES: pt is on bed, restless, and looks agitated. no bilateral wrist restrain. pt is on Bipap and tachypneic. o2 sating 99%, vital sign taken and charted. pt has ongoing ivf to his right shoulder gauge 22- patent and intact. pt has condom catheter that fellow off- will replace later. pt has wound to right elbow and bilateral ankle and abrasion to both knees and toes. clean pt and reposition. needs attended, safety precaution in place. restrain check and no injury.covid isolation. will monitor.
[2020-06-04 19:50] VITALS: BP_SYST 153
[2020-06-04] MEDS: ATORVASTATIN 20 MG TABLET PO SCH (21:00)
[2020-06-04] MEDS: FUROSEMIDE 40 MG/4 ML VIAL IVP SCH (21:56)
[2020-06-04 22:00] VITALS: BP_SYST 153
--- NOTE | 2020-06-04 22:00 | NUR ---
NOTE PATIENT IS STILL RESTLESS, STILL TACHYPNEICS. TOLERATING BIPAP. CALL LIGHT IS WITHIN REACH. BED IS LOCKED, ALARMED, AND AT THE LOWEST LEVEL.COVID ISOLATION.
--- NOTE | 2020-06-04 22:30 | NUR ---
IV PLACEMENT: # 20 gauge angiocath placed to left forearm. Use of asceptic technique. Opsite placed over site. Blood return noted. Flushed with 10 cc of normal saline. No evidence of infiltration noted. Patient tolerated.
[2020-06-04] MEDS: PIPERACILLIN/TAZO 3.375/DEX-IS 50 ML IV SCH (23:29)
[2020-06-05] VITALS: BP_SYST 150
--- NOTE | 2020-06-05 | NUR ---
restless, on bipap, tolerating well. vital sign taken and recorded. needs attended. restrain check and no sign of injury. ivf infusing well. safety precaution in place. low bed position. bed alarm on. covid isolation.
--- NOTE | 2020-06-05 02:27 | NUR ---
restless, on bipap, still tachypneic. o2 sating 99%. bp stable. needs attended. restrain check and no sign of injury. ivf infusing well. safety precaution in place. low bed position. bed alarm on. covid isolation.
--- NOTE | 2020-06-05 04:20 | NUR ---
resting, on bipap. still tachypneic. o2 sating 99%. bp stable. pt is condom catheter clean leak, clean pt and change chux, pt is fighting back when turn to side. needs attended. restrain check and no sign of injury. ivf infusing well. safety precaution in place. low bed position. bed alarm on. covid isolation.
--- NOTE | 2020-06-05 05:01 | NUR ---
dressing change and wound care done.
[2020-06-05] MEDS: LEVOTHYROXINE SODIUM 0.1 MG TABLET PO SCH (05:54)
[2020-06-05] MEDS: PIPERACILLIN/TAZO 3.375/DEX-IS 50 ML IV SCH ×3 (06:01→18:22)
--- NOTE | 2020-06-05 06:07 | NUR ---
resting. restless when approach. on bipap. still tachypneic. o2 sating 99%. bp stable. pt is condom catheter clean no leak at this time. needs attended. restrain check and no sign of injury. ivf infusing well. safety precaution in place. low bed position. bed alarm on. covid isolation.
--- NOTE | 2020-06-05 07:30 | NUR ---
closing: resting. restless when approach. on bipap. still tachypneic. o2 sating 99%. bp stable the whole shift. pt is condom catheter clean no leak at this time. needs attended the whole shift . restrain check q2 hr and no sign of injury. ivf infusing well. safety precaution in place. low bed position. bed alarm on. covid isolation. sbar report given to am rn.
[2020-06-05 08:05] VITALS: BP_SYST 157
--- NOTE | 2020-06-05 08:05 | NUR ---
Routine Patient resting quietly in bed at this time with Bipap at 60% O2. Patient stable.
[2020-06-05] MEDS: RIVAROXABAN 10 MG TABLET PO SCH (10:05)
[2020-06-05] MEDS: SACUBITRIL/VALSARTAN 24 MG-26 MG 1 TABLET PO SCH ×2 (10:05→21:00)
[2020-06-05] MEDS: THIAMINE HCL 100 MG TABLET PO SCH (10:05)
[2020-06-05] MEDS: POLYETHYLENE GLYCOL 3350, 17 GM/ POWD.PACK PO SCH (10:05)
[2020-06-05] MEDS: ASCORBIC ACID 500 MG TABLET PO SCH (10:05)
[2020-06-05] MEDS: FAMOTIDINE PF 20 MG/2 ML VIAL IVP SCH ×2 (10:05→21:24)
[2020-06-05] MEDS: CHOLECALCIFEROL (VITAMIN D3) 2,000 UNIT TABLET PO SCH (10:05)
[2020-06-05] MEDS: CARVEDILOL 12.5 MG TABLET (COREG) PO SCH ×2 (10:05→21:00)
[2020-06-05] MEDS: FUROSEMIDE 40 MG/4 ML VIAL IVP SCH ×2 (10:05→21:24)
[2020-06-05] MEDS: FLUoxetine HCL 20 MG CAPSULE (PROzac) PO SCH (10:05)
[2020-06-05] MEDS: SPIRONOLACTONE 25 MG TABLET (ALDACTONE) PO SCH (10:05)
[2020-06-05] MEDS: ASPIRIN 81 MG TABLET(ECOTRIN) PO SCH (10:05)
[2020-06-05] MEDS: QUEtiapine FUMARATE 25 MG TABLET PO SCH ×2 (10:05→21:00)
--- NOTE | 2020-06-05 10:05 | NUR ---
Routine Scheduled medications given per order. Patient resting in bed with no respiratory distress noted. Patient stable.
[2020-06-05] MEDS: D5NS 1,000 ML IV SCH (10:55)
[2020-06-05 12:10] VITALS: BP_SYST 153
[2020-06-05] MEDS: DEXAMETHASONE SOD PHOSPHATE 10 MG/ML VIAL IVP SCH (12:10)
--- NOTE | 2020-06-05 12:10 | NUR ---
Routine Scheduled IV abx and IVP medications given per order. Checked blood sugar: 127 mg/dl. Emptied 600mls of clear, yellow urine from Rubio drainage bag. Patient stable with no respiratory distress at this time.
--- NOTE | 2020-06-05 15:35 | NUR ---
Routine Patient resting in bed at this time. Checked blood sugar: 136 mg/dl - no coverage required. Patient stable at this time. Emptied 450mls of clear, yellow urine from Rubio drainage bag.
[2020-06-05 16:10] VITALS: BP_SYST 138
--- NOTE | 2020-06-05 17:30 | NUR ---
Routine Patient has been on BiPap throughout shift; FIO2 at 60% at start of shift - reduced to 50% and now 40%. Patient has been tachypneic, but is now breathing 27bpm. Patient stable with RT Sharon at bedside.
--- NOTE | 2020-06-05 18:27 | NUR ---
Routine Scheduled IV abx given per order. Checked blood sugar: 146 mg/dl - no coverage required. Patient still on BiPap with FIO2 @ 40%, breathing 45 bpm. RN and RT will continue to monitor patient.
--- NOTE | 2020-06-05 19:40 | NUR ---
INITIAL NOTES: pt is on bed, restless, and agitated. no bilateral wrist restrain. pt is on Bipap and tachypneic. o2 sating 97%, vital sign taken and charted. pt has ongoing ivf to his left forearm gauge 20- patent and intact. pt has condom catheter intact and draining well. pt has wound to right elbow and bilateral ankle and abrasion to both knees and toes.- dressing change due tomorrow. clean pt and reposition. needs attended, safety precaution in place. restrain check and no injury.covid isolation. will monitor.
[2020-06-05 19:47] VITALS: BP_SYST 164
[2020-06-05] MEDS: ATORVASTATIN 20 MG TABLET PO SCH (21:00)
--- NOTE | 2020-06-05 22:00 | NUR ---
restless, on bipap, still tachypneic. o2 sating 98%. bp stable. needs attended. restrain check and no sign of injury. ivf infusing well. safety precaution in place. low bed position. bed alarm on. covid isolation.
[2020-06-06 00:30] VITALS: BP_SYST 154
[2020-06-06] MEDS: PIPERACILLIN/TAZO 3.375/DEX-IS 50 ML IV SCH ×4 (01:23→17:23)
[2020-06-06] MEDS: D5NS 1,000 ML IV SCH ×2 (01:24→15:02)
--- NOTE | 2020-06-06 02:00 | NUR ---
restless, on bipap, still tachypneic. o2 sating 96'%. bp stable. needs attended. restrain check and no sign of injury. ivf infusing well. safety precaution in place. low bed position. bed alarm on. covid isolation.
--- NOTE | 2020-06-06 05:30 | NUR ---
clean pt reposition, wound dressing change. pt tolerate well. stable. needs attended, safety precaution in place. covid isolation
[2020-06-06] MEDS: LEVOTHYROXINE SODIUM 0.1 MG TABLET PO SCH (05:55)
--- NOTE | 2020-06-06 07:00 | NUR ---
closing: resting. on bipap. still tachypneic. o2 sating 97%. bp stable the whole shift. blood sugar 152. pt is condom catheter clean no leak at this time. dressing all dry and intact.needs attended the whole shift . restrain check q2 hr and no sign of injury. ivf infusing well. safety precaution in place. low bed position. bed alarm on. covid isolation. sbar report given to am rn.
[2020-06-06 07:24] LABS: HEMATOCRIT 40.1 % (36-54); HEMOGLOBIN 10.8 g/dL (14.0-18.0); MEAN CORPUSCULAR HEMOGLOBIN 17 pg (27-31); MEAN CORPUSCULAR HGB CONC 27 % (32-36); MEAN CORPUSCULAR VOLUME 63 fL (79.0-98.0); PLATELET COUNT (AUTO) 278 K/uL (130-430); RED BLOOD CELL COUNT(AUTO) 6.39 MIL/uL (4.2-6.2); RED CELL DISTRIBUTION WIDTH 25.4 % (9.0-15.0); WHITE BLOOD COUNT (AUTO) 23.2 K/uL (4.8-10.8)
[2020-06-06 07:40] VITALS: BP_SYST 123
--- NOTE | 2020-06-06 08:30 | NUR ---
Patient moves left arm upon released from restrainst , open eyes not responding to verbal stimuli head of bed semi fowlers aspiration precaution on BIPAP @ 40% oxygen saturation 96 %, tachypneic kept left arm on wrist restrainst removing his BIPAP, due meds given through IV , unable to give oral meds due ALOC, will monitor.
[2020-06-06] MEDS: FAMOTIDINE PF 20 MG/2 ML VIAL IVP SCH ×2 (08:34→21:56)
[2020-06-06] MEDS: FUROSEMIDE 40 MG/4 ML VIAL IVP SCH ×2 (08:34→22:05)
[2020-06-06] MEDS: SACUBITRIL/VALSARTAN 24 MG-26 MG 1 TABLET PO SCH ×2 (09:00→21:00)
[2020-06-06] MEDS: THIAMINE HCL 100 MG TABLET PO SCH (09:00)
[2020-06-06] MEDS: ASCORBIC ACID 500 MG TABLET PO SCH (09:00)
[2020-06-06] MEDS: FLUoxetine HCL 20 MG CAPSULE (PROzac) PO SCH (09:00)
[2020-06-06] MEDS: CHOLECALCIFEROL (VITAMIN D3) 2,000 UNIT TABLET PO SCH (09:00)
[2020-06-06] MEDS: POLYETHYLENE GLYCOL 3350, 17 GM/ POWD.PACK PO SCH (09:00)
[2020-06-06] MEDS: ASPIRIN 81 MG TABLET(ECOTRIN) PO SCH (09:00)
[2020-06-06] MEDS: SPIRONOLACTONE 25 MG TABLET (ALDACTONE) PO SCH (09:00)
[2020-06-06] MEDS: CARVEDILOL 12.5 MG TABLET (COREG) PO SCH ×2 (09:00→21:00)
[2020-06-06] MEDS: RIVAROXABAN 10 MG TABLET PO SCH (09:00)
[2020-06-06] MEDS: QUEtiapine FUMARATE 25 MG TABLET PO SCH ×2 (09:00→21:00)
[2020-06-06 10:37] LABS: BASOPHILS % (MANUAL) 0 % (0-2); EOSINOPHILS % (MANUAL) 0 % (0-7); LYMPHOCYTES % (MANUAL) 4 % (20-46); MONOCYTES % (MANUAL) 2 % (0-11)
--- NOTE | 2020-06-06 11:00 | NUR ---
Dr. Fishman informed regarding patient progress , unable to take oral meds for few days now due to level of consciousness., on BIPAP 40 % on continuos pulse oximeter saturation 96 to 97% oral care given , head bed kept semi fowlers aspiration precaution.
[2020-06-06] MEDS: DEXAMETHASONE SOD PHOSPHATE 10 MG/ML VIAL IVP SCH (11:03)
[2020-06-06 11:04] VITALS: BP_SYST 114
--- NOTE | 2020-06-06 13:50 | NUR ---
Released restrainst, perineal care given skin cream barrier applied , patient deep sleep, Patient repositioned by staff every 2 hours with pillow support., kept on continues pulse oximeter , close monitoring.
[2020-06-06 15:10] VITALS: BP_SYST 130
--- NOTE | 2020-06-06 17:20 | NUR ---
All belongings hand over to son Patricia Peñaloza , came to see the father with permission from lump room supervisor, tomorrow they will talk to admitting doctor to discuss comfort measure Morphine drip.
[2020-06-06 18:37] VITALS: BP_SYST 130
--- NOTE | 2020-06-06 18:47 | NUR ---
Patient is tachypneic oxygen saturation on BIPAP is 98%
--- NOTE | 2020-06-06 19:25 | NUR ---
Opening note Patient resting in bed, calm, he is barely moving his fingers and moves his feet. Labored breathing, tachypnic on Bipap. IVF infusing via IV to LFA. He has condom cath. Bed is locked in lowest position, and bed alarm is on.
[2020-06-06] MEDS: ATORVASTATIN 20 MG TABLET PO SCH (21:00)
--- NOTE | 2020-06-06 23:27 | NUR ---
Dr. Childress S/W Dr. Childress and informed patient's accucheck result was 156 mg/dL and does not have coverage. She said do not cover, no order for coverage; TORB.
[2020-06-07 00:40] VITALS: BP_SYST 141
[2020-06-07] MEDS: PIPERACILLIN/TAZO 3.375/DEX-IS 50 ML IV SCH ×4 (00:40→17:42)
--- NOTE | 2020-06-07 03:35 | NUR ---
Accucheck Accucheck result of 135 mg/dL; no coverage
[2020-06-07] MEDS: LEVOTHYROXINE SODIUM 0.1 MG TABLET PO SCH (06:00)
[2020-06-07] MEDS: D5NS 1,000 ML IV SCH ×2 (06:30→16:58)
--- NOTE | 2020-06-07 06:30 | NUR ---
Accucheck, wound care Accucheck result of 134mg/dL; no coverage. wound care dressing change done, updated detail in mst charting. administered antibiotic.
--- NOTE | 2020-06-07 07:00 | NUR ---
closing note Patient resting in bed, calm, Labored breathing, tachypnic on Bipap. IVF infusing via IV to LFA. He has condom cath. Bed is locked in lowest position, and bed alarm is on. Needs met throughout shift, will endorse care to day shift nurse
[2020-06-07] MEDS: FAMOTIDINE PF 20 MG/2 ML VIAL IVP SCH (08:38)
[2020-06-07] MEDS: FUROSEMIDE 40 MG/4 ML VIAL IVP SCH (08:38)
[2020-06-07 08:39] VITALS: BP_SYST 155
[2020-06-07] MEDS: RIVAROXABAN 10 MG TABLET PO SCH (09:00)
[2020-06-07] MEDS: CARVEDILOL 12.5 MG TABLET (COREG) PO SCH (09:00)
[2020-06-07] MEDS: CHOLECALCIFEROL (VITAMIN D3) 2,000 UNIT TABLET PO SCH (09:00)
[2020-06-07] MEDS: SACUBITRIL/VALSARTAN 24 MG-26 MG 1 TABLET PO SCH (09:00)
[2020-06-07] MEDS: ASPIRIN 81 MG TABLET(ECOTRIN) PO SCH (09:00)
[2020-06-07] MEDS: ASCORBIC ACID 500 MG TABLET PO SCH (09:00)
[2020-06-07] MEDS: SPIRONOLACTONE 25 MG TABLET (ALDACTONE) PO SCH (09:00)
[2020-06-07] MEDS: FLUoxetine HCL 20 MG CAPSULE (PROzac) PO SCH (09:00)
[2020-06-07] MEDS: POLYETHYLENE GLYCOL 3350, 17 GM/ POWD.PACK PO SCH (09:00)
[2020-06-07] MEDS: THIAMINE HCL 100 MG TABLET PO SCH (09:00)
[2020-06-07] MEDS: QUEtiapine FUMARATE 25 MG TABLET PO SCH (09:00)
[2020-06-07] MEDS ORDERED: COMMUNICATION ORDER XX ONE ×2 (10:00→14:45)
--- NOTE | 2020-06-07 11:00 | NUR ---
Skin care comfort Complete TSB and oral care done . perineal care given kept dry/clean skin cream barrier applied no sign of pressure , repositioned, all extremities kept elevated by pillow , head of bed kept semi yusuf aspiration precaution.
[2020-06-07 11:30] VITALS: BP_SYST 101
[2020-06-07] MEDS: DEXAMETHASONE SOD PHOSPHATE 10 MG/ML VIAL IVP SCH (11:35)
[2020-06-07] MEDS: MORPHINE I.V. DRIP 100 ML IV PRN ×3 (11:40→17:44)
--- NOTE | 2020-06-07 11:40 | NUR ---
Morphine drip @ 2MG/hour Patient kept on oxygen via Oxymizer 6 liter oxygen satiration 94% , tachypneic start on Morphine drip @ 2mg/hour, will monitor.
[2020-06-07 13:03] VITALS: BP_SYST 155
--- NOTE | 2020-06-07 15:30 | NUR ---
Patient deep sleep but still tachypneic shallow breathing ,Morphine drip increase to 3mg/hour, will monitor.
[2020-06-07 15:40] VITALS: BP_SYST 128
--- NOTE | 2020-06-07 16:15 | NUR ---
Skin care/comfort Perineal care given, wash with soap/water pat and dry , with mild redness left buttock skin cream barrier applied , repositioned.,patient deep sleep , breathing is much better compare earlier , oxygen saturation 92%.head of bed kept semi fowlers aspiration precaution, oral care given.
--- NOTE | 2020-06-07 17:44 | NUR ---
Morphine drip increase 4 mg/hour , patient looks more comfortable Oxygen saturation 89% on 8liter/Oxymizer , will monitor.
--- NOTE | 2020-06-07 19:40 | NUR ---
PATIENT AT 1929: BEDSIDE REPORT RECEIVED FROM AM NURSE. PATIENT'S HR IS NOTED TO BE AT 38, OXYGEN SATURATION IS AT 98%. RT CALLED TO BEDSIDE. AT 1939: ON EXAMINATION BY TWO RNs, PATIENT DID NOT RESPOND TO VERBAL OR PHYSICAL STIMULI. HEART AND BREATH SOUNDS ARE ABSENT. PUPILS ARE FIXED AND DILATED. 0 BP NOTED. PATIENT PRONOUNCED AT 1939. DR. HILLMAN (COVERING FOR DR. DETNON) NOTIFIED. PATIENT'S SON BRITNEY AQUINO [phone] NOTIFIED, HE HAS GIVEN MORTUARY HE WISHES HIS FATHER TO GO TO. TIME OF PROUNOUNCED BY TWO RNs AT 1939. BOTH [employer] AND SUPPLIER DIVERSITY DIRECTOR HAVE RELEASED PATIENT BODY. POST MORTEM CARE PROVIDED. PATIENT'S REMAINING PERSONAL BELONGING ARE GIVEN TO SECURITY TO HOLD UNTIL PATIENT'S SON BRITNEY AQUINO WILL OIL WELL SERVICE OPERATOR HELPER. SON STATES HE WILL BE PICKING UP BELONGINGS 06/08/20 AM. CHARGE NURSE AND MANAGER FOOD ARE AWARE.
--- NOTE | 2020-06-07 21:05 | NUR ---
[facility] PAGED [phone], MEDICAL RECEPTIONIST ASSISTANT BERNIE STATED A DISPATCH WILL ARRIVE TO AUTOMATED PROCESS OPERATOR PATIENT IN 1-1.5 HOURS.
--- NOTE | 2020-06-07 21:14 | NUR ---
IKER DENTON PAGESita PER EXCHANGE, SURGICAL RESIDENT BRANDEN WILL ATTEMPT TO PAGE DR. DENTON AT THIS TIME.
--- NOTE | 2020-06-07 21:40 | NUR ---
COMMUNICATION W/ DR. KADY HILLMAN (COVERING FOR DR. DENTON) HAS CALLED BACK AT THIS TIME, SHE IS MADE AWARE THAT PATIENT HAS . DR. HILLMAN VERBALIZED THAT DR. DENTON WILL SIGN PATIENT'S CERTIFICATE TOMORROW.
--- NOTE | 2020-06-07 22:40 | NUR ---
MORTUARY HEALTH AND HUMAN PERFORMANCE PROFESSOR [facility] SUPPORT TECHNICIAN ELANA [phone] HAS PICKED UP THE PATIENT TO GO TO [facility]. TOE TAG, BAG TAG, AND WRIST TAG ARE PROVIDED. REMAINDER OF PATIENT BELONGINGS ARE SENT WITH SECURITY TO HOLD UNTIL SON PICKS UP IN AM.
== END 2020-06-07 19:40 | disposition expired | DRG 871 ==
LOC: SED 17:55 → STU 20:25 → SMU 05-29 23:21
PROVIDERS: ADMIT Internal Medicine Hospice and Palliative Medicine; ATTEND Internal Medicine Hospice and Palliative Medicine
PROC: XW13325 Transfusion of Convalescent Plasma (Nonautologous) into Peripheral Vein, Percutaneous Approach, New Technology Group 5 (ICD-10-PCS; 2020-05-25)
PROC: 5A09457 Assistance with Respiratory Ventilation, 24-96 Consecutive Hours, Continuous Positive Airway Pressure (ICD-10-PCS; principal; 2020-06-04)
DX: A41.9 Sepsis, unspecified organism (principal); U07.1 COVID-19; J96.01 Acute respiratory failure with hypoxia; J12.89 Other viral pneumonia; I48.21 Permanent atrial fibrillation; J44.0 Chronic obstructive pulmonary disease with (acute) lower respiratory infection; G93.40 Encephalopathy, unspecified; Z66 Do not resuscitate; D72.810 Lymphocytopenia; E66.9 Obesity, unspecified; E78.5 Hyperlipidemia, unspecified; G47.33 Obstructive sleep apnea (adult) (pediatric); I11.0 Hypertensive heart disease with heart failure; R41.0 Disorientation, unspecified; D50.9 Iron deficiency anemia, unspecified; G20 Parkinson's disease; I25.10 Atherosclerotic heart disease of native coronary artery without angina pectoris; I50.9 Heart failure, unspecified; I25.5 Ischemic cardiomyopathy; Z79.01 Long term (current) use of anticoagulants; Z79.82 Long term (current) use of aspirin; I25.2 Old myocardial infarction; Z95.1 Presence of aortocoronary bypass graft; Z95.3 Presence of xenogenic heart valve; Z78.1 Physical restraint status; Z68.28 Body mass index [BMI] 28.0-28.9, adult; Z79.899 Other long term (current) drug therapy
CPT/HCPCS: 36415; 36600; 70450-TC; 71045; 76376; 80053; 82140-TC; 82728; 82803-TC; 82962; 83605; 83690-TC; 83735-TC; 83880; 84100-TC; 84484; 85007; 85025; 85027; 85379; 86140; 86886; 86900; 86901; 87040-TC; 93005; 93971; 94660; 94664; 94760; 96374; 99291; G0378; J0456; J0696; J1100; J1630; J1940; J2060; J2270; J2543; J3490; J7050